=== PATIENT | female | born 1985 ===

== ENCOUNTER 2023-10-02 15:29 | Inpatient (IN) ==
[2023-10-02] MEDS ORDERED: LIDOCAINE 1% LOCAL 20 ML VIAL INFIL PRN (20:07)
[2023-10-02] MEDS ORDERED: OXYTOCIN 30 UNITS/NSS 30 UNITS/500 ML BAG IV PRN (20:07)
[2023-10-02 20:33] LABS: Hematocrit (blood only) 35.3 % (37.0-47.0); Hemoglobin 11.4 g/dl (12.0-16.0); Mean Corpuscular Hemoglobin 25.6 pg (25.0-34.0); Mean Corpuscular Hgb Conc 32.3 g/dL (32.0-36.0); Mean Corpuscular Volume 79.3 fL (80.0-100.0); Mean Platelet Volume 12.6 fL (9.4-12.4); Platelet Count 163 K/uL (130-400); RDW Coefficient of Variation 15.9 % (11.5-14.5); RDW Standard Deviation 45.3 fL (36.4-46.3); Red Blood Count 4.45 M/uL (4.20-5.40); White Blood Count 7.19 K/ul (4.8-10.8)
[2023-10-02 20:41] LABS: Total Protein Urine Random 37.5 mg/dl (0-11.9)
[2023-10-02 20:47] LABS: Creatinine Urine Random 62.3 mg/dl; Protein Creatinine Ratio Urine 0.6 (0-0.2)
[2023-10-02 20:49] LABS: Albumin Globulin Ratio 1.1 (0.9-2); Albumin Level 3.5 gm/dl (3.4-5.0); Bilirubin,Total 0.2 mg/dl (0.2-1.0); Calcium 8.8 mg/dl (8.6-10.3); Creatinine Clr Calc Pharmacy 114.1 ml/min; Est GFR (African American) 128.9 ml/min; Est GFR (Non-African American) 111.2 ml/min; Globulin 3.2 gm/dl (2.5-4.0); Potassium 3.9 mmol/L (3.5-5.1); Total Protein 6.7 gm/dl (6.0-8.3)
[2023-10-02] MEDS: DINOPROSTONE 10 MG INSERT PV ONE (20:55)
--- NOTE | 2023-10-02 21:19 | History & Physical Report ---
Date of Service October 02, 2023 Assessment & Plan (1) Post-term , 40-42 weeks of gestation: Plan: 38-year-old G1, P0 at 41 weeks of gestation presenting today for induction of labor for postdates, Vital signs stable afebrile, No medical problems, GBS negative, Incidental proteinuria, normal blood pressures, normal labs, asymptomatic, Cervix unfavorable, Plan to admit, monitor, cervix is placed in posterior fornix for cervical ripening, discussed what to expect All questions were answered. (2) Advanced maternal age, primigravida in third trimester, antepartum: (3) Anemia affecting : (4) Proteinuria affecting in third trimester: Admission and Anticipated Discharge Date Admission Date: October 02, 2023 History of Present Illness Chief Complaint: Induction of labor for postdates Primary Care Provider: NO PCP Patient is a 38-year-old G1, P0 at 41 weeks of gestation who is presenting today for scheduled induction of labor for postdates. She has no complaints. She denies contractions, leakage of fluid, vaginal bleeding. She reports good movements. Her has been complicated by, 1. Late care at 20 weeks, 2. Advanced maternal age, no testing was done. 3. Anemia GBS is negative Allergies Allergy/AdvReac Type Severity Reaction Status Date / Time No Known Allergies Allergy Unverified 10/02/23 19:33 Home Medications Medication Instructions Recorded Confirmed Type ferrous sulfate 325 mg (65 mg 325 mg PO DAILY #60 tabs 06/17/23 10/02/23 Rx iron) tablet vits no.130-ferrous fum 1 tab PO DAILY #60 tabs 06/17/23 10/02/23 Rx 27 mg iron-folic acid 800 mcg tablet ( Vitamin) Patient History Medical History No known health problems Surgical History History of surgery on arm right arm Family History Other No known health problems Social History Smoking Status: Never smoker Hx Alcohol Use: No Hx Substance Use: No Preferred Language: Surinamese Communication Ability Comment: limited Communication Tools: IPad Visual Impairment: No Limitations 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 Beliefs That Will Affect Care: None marital status: Current Living Situation: Spouse and Family Current Living Situation Comment: lives with hubsand, aunt and uncle current occupational status: unemployed Feels Safe at Home: Yes Safety Concerns: Feels Safe At This Time 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 No history of STDs Review of Systems as per Subjective / HPI Physical Exam Constitutional: WD/WN, vitals as above well developed, well nourished and comfortable Gastrointestinal (Abdomen): normal bowel sounds, soft, nontender, no hepatosplenomegaly (Gravid [place] 7 to 8 pounds) Genitourinary: normal external appearance OB Exam Abdomen: + vertex (Confirmed by bedside ultrasound) Manual OB Exam: + cervical dilation (0), + cervical effacement 20% and + station high (-3 posterior) OB Exam Monitor Tracing: + external uterine monitor used and + category I Bedside ultrasound, vertex presentation, placenta anterior, PADDY 4.5 cm, EFW at 3500 g. Results & Data Vital Signs (Past 12 Hours) Vital Signs Temp Pulse Resp BP O2 Del Method 10/02/23 19:56 90 131/87 10/02/23 19:26 36.9 C 18 Room Air 10/02/23 19:25 85 137/88 Laboratory Results Lab Results 10/02/23 10/02/23 Range/Units 20:00 20:15 WBC 7.19 (4.8-10.8) K/ul RBC 4.45 (4.20-5.40) M/uL Hgb 11.4 L (12.0-16.0) g/dl Hct 35.3 L (37.0-47.0) % MCV 79.3 L (80.0-100.0) fL MCH 25.6 (25.0-34.0) pg MCHC 32.3 (32.0-36.0) g/dL RDW Std Deviation 45.3 (36.4-46.3) fL RDW Coeff of Caroline 15.9 H (11.5-14.5) % Plt Count 163 (130-400) K/uL MPV 12.6 H (9.4-12.4) fL Sodium 135 L (136-145) mmol/L Potassium 3.9 (3.5-5.1) mmol/L Chloride 105 (98-107) mmol/L Carbon Dioxide 22 (21-32) mmol/L Anion Gap 8 (3-11) BUN 9 (6-23) mg/dl Creatinine 0.69 (0.6-1.2) mg/dl Est Cr Clr Drug Dosing 114.1 ml/min Est GFR ( Amer) 128.9 ml/min Est GFR (Non-Af Amer) 111.2 ml/min BUN/Creatinine Ratio 13.0 (10-20) Glucose 92 (70-99(Fasting)) mg/dl Calcium 8.8 (8.6-10.3) mg/dl Total Bilirubin 0.2 (0.2-1.0) mg/dl AST 27 (13-39) U/L ALT 27 (7-52) U/L Alkaline Phosphatase 129 H (34-104) U/L Total Protein 6.7 (6.0-8.3) gm/dl Albumin 3.5 (3.4-5.0) gm/dl Globulin 3.2 (2.5-4.0) gm/dl Albumin/Globulin Ratio 1.1 (0.9-2) Ur Random Creatinine 62.3 mg/dl U Random Total Protein 37.5 H (0-11.9) mg/dl Protein/Creatinin Ratio 0.6 H (0-0.2)
[2023-10-03] MEDS: LACTATED RINGER'S 1,000 ML IV PRN (04:55)
[2023-10-03] MEDS: BUTORPHANOL TARTRATE 2 MG/ML VIAL IV PRN (04:56)
[2023-10-03] MEDS: BUTORPHANOL TARTRATE 2 MG/ML VIAL ONE (05:14)
--- NOTE | 2023-10-03 10:09 | Labor Progress Brief Note ---
Date of Service October 03, 2023 Assessment & Plan Admission and Anticipated Discharge Date Admission Date: October 02, 2023 Physical Exam Genitourinary: Manual OB Exam: + cervical dilation fingertip, + cervical effacement 50% and + station high OB Exam Monitor Tracing: + external FHT monitor used, + external uterine monitor used, + category I and + normal FHT variability I attempted to place Lima balloon into cervix but patient was not tolerating the exam and moving so unable to place due to pain Results & Data Vital Signs (Past 12 Hours) Vital Signs Temp Pulse Resp BP 10/03/23 09:00 87 129/85 10/03/23 07:07 79 137/83 10/03/23 07:06 20 10/03/23 07:06 36.7 C 20 10/03/23 02:59 36.7 C 97 H 20 129/76 10/02/23 23:02 75 119/70 10/02/23 23:01 18 10/02/23 23:01 36.8 C 18
[2023-10-03] MEDS: miSOPROStoL 50 MCG TAB PO STA ×2 (13:35→17:35)
[2023-10-03] MEDS: miSOPROStoL 50 MCG TAB ONE (21:50)
[2023-10-04] MEDS: miSOPROStoL 50 MCG TAB PO SCH (02:37)
--- NOTE | 2023-10-04 07:48 | Labor Progress Brief Note ---
Date of Service October 04, 2023 Assessment & Plan Admission and Anticipated Discharge Date Admission Date: October 02, 2023 Physical Exam Genitourinary: Manual OB Exam: + cervical dilation fingertip and 1 cm, + cervical effacement 50% and + station high OB Exam Monitor Tracing: + external FHT monitor used, + external uterine monitor used, + category I and + normal FHT variability plan to use another Cervidil for ripening cervix Results & Data Vital Signs (Past 12 Hours) Vital Signs Temp Pulse Resp BP 10/04/23 07:25 36.8 C 83 18 132/90 10/04/23 02:33 88 135/83 10/04/23 00:30 18 10/04/23 00:30 18 10/03/23 21:52 93 H 140/93 10/03/23 20:00 18 10/03/23 20:00 36.8 C 18 10/03/23 19:50 92 H 132/85
[2023-10-04] MEDS: miSOPROStoL 50 MCG TAB PO STA (09:26)
[2023-10-04] MEDS: DINOPROSTONE 10 MG INSERT PV STA (09:35)
--- NOTE | 2023-10-04 14:40 | Labor Progress Brief Note ---
Date of Service October 04, 2023 Assessment & Plan Admission and Anticipated Discharge Date Admission Date: October 02, 2023 Physical Exam Genitourinary: Manual OB Exam: + cervical dilation fingertip and 1 cm, + cervical effacement 50% and + station high OB Exam Monitor Tracing: + external FHT monitor used, + external uterine monitor used, + category I and + normal FHT variability Lima balloon placed into cervix with 30 ml sterile water placed in balloon Results & Data Vital Signs (Past 12 Hours) Vital Signs Temp Pulse Resp BP 10/04/23 14:09 95 H 143/91 H 10/04/23 07:25 36.8 C 83 18 132/90
[2023-10-04] MEDS ORDERED: ATROPINE SULFATE 0.1 MG/ML 10ML SYR IV PRN (16:00)
[2023-10-04] MEDS ORDERED: diphenhydrAMINE 50 MG/ML VIAL IV PRN (16:00)
[2023-10-04] MEDS ORDERED: SODIUM CHLORIDE 0.9% PF INJ 10 ML VIAL EPI PRN (16:00)
[2023-10-04] MEDS ORDERED: BUPIVACAINE 0.25% PF 30 ML VIAL EPI PRN (16:00)
[2023-10-04] MEDS ORDERED: fentaNYL citrate PF 100 MCG/2 ML VIAL EPI PRN (16:00)
[2023-10-04] MEDS ORDERED: NALOXONE HCL 1 MG in SODIUM CHLORIDE 0.9% 1,000 ML IV PRN (16:00)
[2023-10-04] MEDS ORDERED: LIDOCAINE 2% MPF LOCAL 5 ML VIAL EPI PRN (16:00)
[2023-10-04] MEDS ORDERED: ePHEDrine sulfate 50 MG/ML AMP IV PRN ×2 (16:00)
[2023-10-04] MEDS ORDERED: NALBUPHINE HCL 5 MG in SYRINGE 0 ML IV PRN (16:00)
[2023-10-04] MEDS ORDERED: NALOXONE HCL 0.4 MG/1 ML VIAL/CARP IV PRN (16:00)
[2023-10-04] MEDS ORDERED: ROPIVACAINE 0.5% PF 5 MG/ML 20 ML VIAL EPI PRN (16:00)
--- NOTE | 2023-10-04 16:02 | Anesthesiology Consultation ---
Date of Service October 04, 2023 Assessment & Plan Chart Review Chart Review: Acceptable Risk for Labor Epidural Consults Requested none ASA ASA2 Proposed Anesthesia Anesthesia Type: Labor Epidural History Height/Weight Height: 5 ft 4 in Weight: 79.832 kg Allergies Allergy/AdvReac Type Severity Reaction Status Date / Time No Known Allergies Allergy Unverified 10/02/23 19:33 Medications Home Medications Medication Instructions Recorded Confirmed Last Taken ferrous sulfate 325 mg (65 mg 325 mg PO DAILY #60 tabs 06/17/23 10/02/23 10/01/23 iron) tablet vits no.130-ferrous fum 1 tab PO DAILY #60 tabs 06/17/23 10/02/23 10/01/23 27 mg iron-folic acid 800 mcg tablet ( Vitamin) Active Medications Generic Name Dose Route Start Last Admin Trade Name Freq PRN Reason Stop Dose Admin Butorphanol Tartrate 1 mg 10/03/23 04:48 10/04/23 14:06 Butorphanol Tartrate 2 Mg/Ml Vial IV 11/02/23 04:47 1 mg Q3HWA PRN Administration Pain Lactated Ringer's 1,000 mls @ 125 mls/hr 10/02/23 20:07 10/04/23 15:57 Lr IV 10/04/23 20:06 999 mls/hr .Q8H PRN Administration L&D Protocol Protocol Misoprostol 50 mcg 10/03/23 23:00 10/04/23 07:51 Misoprostol 50 Mcg Tab PO 11/02/23 22:59 Not Given Q4R AME Past Medical History Medical History No known health problems Past Family History Family History Other No known health problems Past Surgical History Surgical History History of surgery on arm right arm Social History Smoking Status: Never smoker Hx Alcohol Use: No Hx Substance Use: No substance use type: does not use Physical Exam Vital Signs Last Vital Signs Temp 36.8 C 10/04/23 14:08 Pulse 101 H 10/04/23 15:59 Resp 20 10/04/23 14:08 BP 143/91 H 10/04/23 14:09 Pulse Ox 96 10/04/23 15:59 O2 Del Method Room Air 10/02/23 19:26 Testing Laboratory Results 10/02/23 20:15 10/02/23 20:15
[2023-10-04] MEDS: LIDOCAINE 2%/EPINEPHRINE 1:200,000 20 ML PF ONE (16:30)
[2023-10-04] MEDS: fentANYL 2 MCG/ML BUPIVacaine 0.125%-NSS 100ML BAG ONE (16:32)
[2023-10-04] MEDS: fentaNYL citrate PF 100 MCG/2 ML VIAL ONE (16:39)
[2023-10-04] MEDS: fentaNYL citrate PF 100 MCG/2 ML VIAL EPI STA (16:40)
[2023-10-04] MEDS: SODIUM CHLORIDE 0.9% PF INJ 10 ML VIAL ONE (16:40)
[2023-10-04] MEDS: BUPIVACAINE 0.25% PF 30 ML VIAL ONE (16:40)
[2023-10-04] MEDS: BUPIVACAINE 0.25% PF 30 ML VIAL EPI STA (16:40)
[2023-10-04] MEDS: LIDOCAINE 2%/EPINEPHRINE 1:200,000 20 ML PF EPI STA (16:41)
[2023-10-04] MEDS: SODIUM CHLORIDE 0.9% PF INJ 10 ML VIAL EPI STA (16:41)
[2023-10-04] MEDS: ePHEDrine sulfate 50 MG/ML AMP ONE (19:06)
[2023-10-04] MEDS: LACTATED RINGER'S 1,000 ML IV SCH (21:30)
[2023-10-05] MEDS: fentANYL 2 MCG/ML BUPIVacaine 0.125%-NSS 100ML BAG EPI PRN (01:07)
[2023-10-05] MEDS: OXYTOCIN 30 UNITS/NSS 30 UNITS/500 ML BAG IV PRN (02:46)
--- NOTE | 2023-10-05 07:50 | Labor Progress Brief Note ---
Date of Service October 05, 2023 Assessment & Plan Admission and Anticipated Discharge Date Admission Date: October 02, 2023 Physical Exam Genitourinary: Manual OB Exam: + cervical dilation 5 cm, + cervical effacement 90%, + station -2 and + amniotic fluid clear OB Exam Monitor Tracing: + external FHT monitor used, + external uterine monitor used, + category I and + normal FHT variability AROM with Amni-hook clear fluid Results & Data Vital Signs (Past 12 Hours) Vital Signs Temp Pulse Resp BP Pulse Ox 10/05/23 07:46 104 H 93 10/05/23 07:41 94 10/05/23 07:41 93 H 10/05/23 07:41 93 H 95 10/05/23 07:38 88 124/67 10/05/23 07:36 91 H 95 10/05/23 07:31 91 H 96 10/05/23 07:30 20 10/05/23 07:30 20 10/05/23 07:28 95 H 94 10/05/23 07:26 95 H 96 10/05/23 07:22 90 128/69 10/05/23 07:21 95 H 95 10/05/23 07:19 92 H 94 10/05/23 07:16 94 H 95 10/05/23 07:11 99 H 97 10/05/23 07:07 107 H 126/75 10/05/23 07:06 98 H 96 10/05/23 07:05 20 10/05/23 07:05 37.2 C 20 10/05/23 07:01 92 H 95 10/05/23 07:00 18 10/05/23 07:00 18 10/05/23 06:58 95 H 94 10/05/23 06:56 95 H 95 10/05/23 06:51 92 H 96 10/05/23 06:46 98 H 96 10/05/23 06:41 93 H 98 10/05/23 06:36 95 H 96 10/05/23 06:31 98 H 98 10/05/23 06:30 20 10/05/23 06:30 20 10/05/23 06:26 98 H 97 10/05/23 06:22 104 H 126/77 10/05/23 06:21 98 H 98 10/05/23 06:16 96 H 96 10/05/23 06:11 101 H 97 10/05/23 06:07 100 H 135/69 10/05/23 06:06 102 H 95 10/05/23 06:01 98 H 96 10/05/23 05:56 100 H 96 10/05/23 05:52 103 H 135/73 10/05/23 05:51 104 H 97 10/05/23 05:46 103 H 97 10/05/23 05:41 104 H 97 10/05/23 05:36 98 H 97 10/05/23 05:31 107 H 96 10/05/23 05:30 18 10/05/23 05:30 18 10/05/23 05:26 108 H 95 10/05/23 05:21 101 H 96 10/05/23 05:16 102 H 97 10/05/23 05:11 106 H 96 10/05/23 05:06 104 H 96 10/05/23 05:04 107 H 94 10/05/23 05:01 103 H 95 10/05/23 05:00 18 10/05/23 05:00 18 10/05/23 04:56 102 H 96 10/05/23 04:53 108 H 135/75 10/05/23 04:51 102 H 94 10/05/23 04:46 102 H 96 10/05/23 04:45 103 H 94 10/05/23 04:41 105 H 96 10/05/23 04:40 110 H 94 10/05/23 04:37 101 H 126/67 10/05/23 04:36 100 H 96 10/05/23 04:31 102 H 96 10/05/23 04:30 18 10/05/23 04:30 18 10/05/23 04:26 99 H 96 10/05/23 04:22 97 H 126/65 10/05/23 04:21 98 H 96 10/05/23 04:16 107 H 97 10/05/23 04:11 100 H 97 10/05/23 04:07 100 H 119/64 10/05/23 04:06 99 H 94 10/05/23 04:01 99 H 94 10/05/23 04:00 18 10/05/23 04:00 18 10/05/23 03:56 104 H 96 10/05/23 03:52 104 H 116/64 03/18/24 03:51 110 H 96 18/24 03:46 105 H 96 18/24 03:41 102 H 95 0318/24 03:37 98 H 109/56 L 1824 03:36 98 H 95 18/24 03:35 102 H 94 18/24 03:31 101 H 95 18/24 03:29 100 H 94 18/24 03:26 99 H 95 18/24 03:23 96 H 113/55 L 1824 03:21 99 H 97 18/24 03:20 98 H 94 18/24 03:16 97 H 96 18/24 03:11 95 H 97 18/24 03:07 95 H 115/61 18/24 03:06 98 H 96 18/24 03:01 97 H 97 1824 02:56 96 H 96 18/24 02:52 96 H 114/61 18/24 02:51 95 H 96 18/24 02:46 97 H 96 18/24 02:41 96 H 98 18/24 02:37 96 H 113/60 18/24 02:36 93 H 97 18/24 02:31 97 H 97 18/24 02:26 98 H 98 18/24 02:22 93 H 118/64 18/24 02:21 94 H 97 18/24 02:16 91 H 97 18/24 02:11 93 H 97 18/24 02:07 102 H 129/76 18/24 02:06 101 H 99 18/24 02:01 97 H 98 18/24 01:56 107 H 99 18/24 01:52 105 H 136/86 18/24 01:51 104 H 97 18/24 01:46 103 H 98 18/24 01:41 102 H 97 18/24 01:39 104 H 135/77 18/24 01:36 97 H 97 18/24 01:31 97 H 97 18/24 01:30 20 18/24 01:30 20 18/24 01:26 96 H 98 03/18/24 01:22 94 H 135/78 10/05/23 01:21 98 H 98 10/05/23 01:16 96 H 98 10/05/23 01:11 99 H 98 10/05/23 01:08 100 H 136/78 10/05/23 01:06 99 H 98 10/05/23 01:01 98 H 98 10/05/23 01:00 20 10/05/23 01:00 20 10/05/23 00:56 97 H 98 10/05/23 00:52 102 H 135/69 10/05/23 00:51 98 H 97 10/05/23 00:46 104 H 97 10/05/23 00:41 96 H 99 10/05/23 00:37 100 H 137/70 10/05/23 00:36 106 H 99 10/05/23 00:31 104 H 99 10/05/23 00:30 18 10/05/23 00:30 18 10/05/23 00:26 104 H 98 10/05/23 00:23 100 H 132/74 10/05/23 00:21 95 H 97 10/05/23 00:16 94 H 97 10/05/23 00:11 96 H 98 10/05/23 00:08 100 H 131/74 10/05/23 00:06 93 H 96 10/05/23 00:01 95 H 97 10/05/23 00:00 18 10/05/23 00:00 37.0 C 18 10/04/23 23:56 94 H 98 10/04/23 23:52 90 130/70 10/04/23 23:51 92 H 97 10/04/23 23:46 91 H 98 10/04/23 23:41 95 H 99 10/04/23 23:37 100 H 140/87 10/04/23 23:36 103 H 99 10/04/23 23:31 101 H 100 10/04/23 23:30 18 10/04/23 23:30 18 10/04/23 23:26 99 H 99 10/04/23 23:22 97 H 137/81 10/04/23 23:21 103 H 99 10/04/23 23:16 96 H 100 10/04/23 23:11 102 H 100 10/04/23 23:06 89 99 10/04/23 23:01 96 H 100 10/04/23 23:00 18 10/04/23 23:00 18 10/04/23 22:56 103 H 100 10/04/23 22:51 101 H 100 10/04/23 22:46 98 H 100 10/04/23 22:41 98 H 99 10/04/23 22:37 94 H 122/61 10/04/23 22:36 93 H 99 10/04/23 22:31 111 H 98 10/04/23 22:30 18 10/04/23 22:30 37.1 C 18 10/04/23 22:26 101 H 98 10/04/23 22:21 100 H 100 10/04/23 22:16 100 H 100 10/04/23 22:11 95 H 100 10/04/23 22:07 93 H 138/79 10/04/23 22:06 90 99 10/04/23 22:01 92 H 99 10/04/23 22:00 18 10/04/23 22:00 18 10/04/23 21:56 93 H 100 10/04/23 21:53 98 H 143/80 H 10/04/23 21:51 97 H 99 10/04/23 21:46 90 100 10/04/23 21:41 91 H 100 10/04/23 21:38 105 H 140/53 L 10/04/23 21:36 92 H 99 10/04/23 21:31 106 H 100 10/04/23 21:30 18 10/04/23 21:30 18 10/04/23 21:26 98 H 97 10/04/23 21:22 100 H 131/75 10/04/23 21:21 95 H 100 10/04/23 21:16 95 H 100 10/04/23 21:11 90 100 10/04/23 21:07 92 H 132/79 10/04/23 21:06 95 H 100 10/04/23 21:01 93 H 100 10/04/23 21:00 18 10/04/23 21:00 18 10/04/23 20:56 93 H 100 10/04/23 20:52 90 124/75 10/04/23 20:51 91 H 100 10/04/23 20:46 94 H 100 10/04/23 20:41 97 H 100 10/04/23 20:36 103 H 92 10/04/23 20:35 105 H 94 10/04/23 20:31 91 H 100 10/04/23 20:30 18 10/04/23 20:30 18 10/04/23 20:26 92 H 100 10/04/23 20:22 93 H 108/73 10/04/23 20:21 91 H 100 10/04/23 20:16 94 H 100 10/04/23 20:11 102 H 100 10/04/23 20:07 94 H 126/70 10/04/23 20:06 79 100 10/04/23 20:01 98 H 100 10/04/23 20:00 18 10/04/23 20:00 18 10/04/23 19:56 91 H 99 10/04/23 19:53 96 H 115/71 10/04/23 19:51 99 H 99
--- NOTE | 2023-10-05 11:13 | Obstetrical Progress Note ---
Date of Service October 05, 2023 Assessment & Plan Admission and Anticipated Discharge Date Admission Date: October 02, 2023 Subjective Patient is reevaluated. Had tachysytole and Oxytocin was decreased from 14 to 7, IVF bolus was given FHR categ I VE; 8/ 90%/0 Continue to monitor closely. Results & Data Vital Signs (Past 12 Hours) Vital Signs Temp Pulse Resp BP Pulse Ox 10/05/23 11:07 106 H 157/91 H 98 10/05/23 11:02 93 H 99 10/05/23 11:00 18 10/05/23 11:00 18 10/05/23 10:57 90 99 10/05/23 10:52 92 H 98 10/05/23 10:47 109 H 98 10/05/23 10:42 92 H 99 10/05/23 10:37 88 127/76 99 10/05/23 10:32 93 H 98 10/05/23 10:30 20 10/05/23 10:30 20 10/05/23 10:27 100 H 97 10/05/23 10:22 105 H 10/05/23 10:22 95 H 131/75 98 10/05/23 10:17 94 H 97 10/05/23 10:12 90 98 10/05/23 10:07 104 H 133/80 96 10/05/23 10:02 101 H 97 10/05/23 10:01 37.2 C 10/05/23 09:57 97 H 98 10/05/23 09:53 100 H 127/83 10/05/23 09:52 101 H 99 10/05/23 09:47 98 H 97 10/05/23 09:42 91 H 95 10/05/23 09:38 100 H 93 10/05/23 09:37 90 117/66 95 10/05/23 09:32 90 96 10/05/23 09:30 18 10/05/23 09:30 18 10/05/23 09:27 91 H 96 10/05/23 09:22 90 120/68 97 10/05/23 09:17 94 H 97 10/05/23 09:12 93 H 96 10/05/23 09:07 90 120/65 96 10/05/23 09:04 96 H 94 10/05/23 09:02 90 96 03/18/24 09:00 18 03/18/24 09:00 18 24 08:57 92 H 97 1824 08:52 91 H 122/68 97 1824 08:47 97 H 98 1824 08:42 95 H 98 1824 08:38 104 H 121/65 1824 08:37 105 H 98 1824 08:32 97 H 97 1824 08:30 20 1824 08:30 20 1824 08:26 97 H 95 1824 08:22 98 H 127/67 1824 08:21 93 1824 08:21 98 H 1824 08:21 98 H 96 1824 08:16 96 H 94 24 08:15 96 H 94 1824 08:11 100 H 95 24 08:09 99 H 93 24 08:07 96 H 130/71 10/05/23 08:06 99 H 95 10/05/23 08:01 104 H 95 24 08:00 36.9 C 102 H 18 94 1824 07:56 97 H 96 1824 07:53 98 H 137/65 1824 07:51 100 H 97 24 07:46 104 H 93 1824 07:41 94 1824 07:41 93 H 1824 07:41 93 H 95 1824 07:38 88 124/67 1824 07:36 91 H 95 1824 07:31 91 H 96 1824 07:30 20 1824 07:30 20 18/24 07:28 95 H 94 18/24 07:26 95 H 96 18/24 07:22 90 128/69 1824 07:21 95 H 95 18/24 07:19 92 H 94 1824 07:16 94 H 95 1824 07:11 99 H 97 1824 07:07 107 H 126/75 1824 07:06 98 H 96 1824 07:05 20 03/18/24 07:05 37.2 C 20 10/05/23 07:01 92 H 95 10/05/23 07:00 18 10/05/23 07:00 18 10/05/23 06:58 95 H 94 10/05/23 06:56 95 H 95 10/05/23 06:51 92 H 96 10/05/23 06:46 98 H 96 10/05/23 06:41 93 H 98 10/05/23 06:36 95 H 96 10/05/23 06:31 98 H 98 10/05/23 06:30 20 10/05/23 06:30 20 10/05/23 06:26 98 H 97 10/05/23 06:22 104 H 126/77 10/05/23 06:21 98 H 98 10/05/23 06:16 96 H 96 10/05/23 06:11 101 H 97 10/05/23 06:07 100 H 135/69 10/05/23 06:06 102 H 95 10/05/23 06:01 98 H 96 10/05/23 05:56 100 H 96 10/05/23 05:52 103 H 135/73 10/05/23 05:51 104 H 97 10/05/23 05:46 103 H 97 10/05/23 05:41 104 H 97 10/05/23 05:36 98 H 97 10/05/23 05:31 107 H 96 10/05/23 05:30 18 10/05/23 05:30 18 10/05/23 05:26 108 H 95 10/05/23 05:21 101 H 96 10/05/23 05:16 102 H 97 10/05/23 05:11 106 H 96 10/05/23 05:06 104 H 96 10/05/23 05:04 107 H 94 10/05/23 05:01 103 H 95 10/05/23 05:00 18 10/05/23 05:00 18 10/05/23 04:56 102 H 96 24 04:53 108 H 135/75 10/05/23 04:51 102 H 94 1824 04:46 102 H 96 24 04:45 103 H 94 24 04:41 105 H 96 10/05/23 04:40 110 H 94 03/18/24 04:37 101 H 126/67 24 04:36 100 H 96 1824 04:31 102 H 96 24 04:30 18 10/05/23 04:30 18 24 04:26 99 H 96 24 04:22 97 H 126/65 10/05/23 04:21 98 H 96 10/05/23 04:16 107 H 97 10/05/23 04:11 100 H 97 10/05/23 04:07 100 H 119/64 24 04:06 99 H 94 10/05/23 04:01 99 H 94 10/05/23 04:00 18 10/05/23 04:00 18 10/05/23 03:56 104 H 96 10/05/23 03:52 104 H 116/64 10/05/23 03:51 110 H 96 10/05/23 03:46 105 H 96 10/05/23 03:41 102 H 95 24 03:37 98 H 109/56 L 10/05/23 03:36 98 H 95 24 03:35 102 H 94 24 03:31 101 H 95 1824 03:29 100 H 94 24 03:26 99 H 95 24 03:23 96 H 113/55 L 10/05/23 03:21 99 H 97 10/05/23 03:20 98 H 94 24 03:16 97 H 96 10/05/23 03:11 95 H 97 24 03:07 95 H 115/61 1824 03:06 98 H 96 24 03:01 97 H 97 24 02:56 96 H 96 1824 02:52 96 H 114/61 1824 02:51 95 H 96 1824 02:46 97 H 96 1824 02:41 96 H 98 1824 02:37 96 H 113/60 24 02:36 93 H 97 1824 02:31 97 H 97 24 02:26 98 H 98 1824 02:22 93 H 118/64 18/24 02:21 94 H 97 18/24 02:16 91 H 97 /18/24 02:11 93 H 97 /18/24 02:07 102 H 129/76 /18/24 02:06 101 H 99 0318/24 02:01 97 H 98 18/24 01:56 107 H 99 18/24 01:52 105 H 136/86 18/24 01:51 104 H 97 18/24 01:46 103 H 98 18/24 01:41 102 H 97 18/24 01:39 104 H 135/77 18/24 01:36 97 H 97 18/24 01:31 97 H 97 /18/24 01:30 20 1824 01:30 20 18/24 01:26 96 H 98 18/24 01:22 94 H 135/78 18/24 01:21 98 H 98 18/24 01:16 96 H 98 18/24 01:11 99 H 98 1824 01:08 100 H 136/78 18/24 01:06 99 H 98 18/24 01:01 98 H 98 18/24 01:00 20 1824 01:00 20 1824 00:56 97 H 98 18/24 00:52 102 H 135/69 18/24 00:51 98 H 97 18/24 00:46 104 H 97 18/24 00:41 96 H 99 18/24 00:37 100 H 137/70 18/24 00:36 106 H 99 18/24 00:31 104 H 99 18/24 00:30 18 18/24 00:30 18 18/24 00:26 104 H 98 /18/24 00:23 100 H 132/74 03/18/24 00:21 95 H 97 0318/24 00:16 94 H 97 18/24 00:11 96 H 98 18/24 00:08 100 H 131/74 03/18/24 00:06 93 H 96 /18/24 00:01 95 H 97 /18/24 00:00 18 03/18/24 00:00 37.0 C 18 10/04/23 23:56 94 H 98 10/04/23 23:52 90 130/70 10/04/23 23:51 92 H 97 10/04/23 23:46 91 H 98 10/04/23 23:41 95 H 99 10/04/23 23:37 100 H 140/87 10/04/23 23:36 103 H 99 10/04/23 23:31 101 H 100 10/04/23 23:30 18 10/04/23 23:30 18 10/04/23 23:26 99 H 99 10/04/23 23:22 97 H 137/81 10/04/23 23:21 103 H 99 10/04/23 23:16 96 H 100
[2023-10-05] MEDS ORDERED: GENTAMICIN CONSULT ACTIVE PRN (13:38)
[2023-10-05] MEDS ORDERED: GENTAMICIN SULFATE 120 MG in DEXTROSE 5% 100 ML IV STA (13:38)
--- NOTE | 2023-10-05 13:42 | Obstetrical Progress Note ---
Date of Service October 05, 2023 Assessment & Plan Admission and Anticipated Discharge Date Admission Date: October 02, 2023 Subjective Patient is reevaluated. She has been resting, having chills on and off Temp 38 VE: 10/100%/ +1 to 2 FHR 170's, tachycardic , good variability, no decels Plan to start IV AB and pushing Discussed needing to deliver soon. Results & Data Vital Signs (Past 12 Hours) Vital Signs Temp Pulse Resp BP Pulse Ox 10/05/23 13:37 112 H 97 10/05/23 13:36 109 H 131/77 10/05/23 13:32 117 H 99 10/05/23 13:27 117 H 99 10/05/23 13:22 118 H 99 10/05/23 13:21 121 H 130/71 10/05/23 13:17 119 H 99 10/05/23 13:12 115 H 98 10/05/23 13:07 114 H 10/05/23 13:07 117 H 127/78 99 10/05/23 13:02 122 H 98 10/05/23 13:00 18 10/05/23 13:00 18 10/05/23 12:57 114 H 97 10/05/23 12:52 128 H 99 10/05/23 12:50 110 H 153/114 H 10/05/23 12:47 114 H 99 10/05/23 12:42 115 H 98 10/05/23 12:37 107 H 10/05/23 12:37 109 H 166/113 H 99 10/05/23 12:32 106 H 99 10/05/23 12:30 18 10/05/23 12:30 18 10/05/23 12:27 106 H 98 10/05/23 12:22 104 H 99 10/05/23 12:17 101 H 99 10/05/23 12:12 100 H 99 10/05/23 12:08 115 H 136/96 10/05/23 12:07 121 H 100 10/05/23 12:02 120 H 99 10/05/23 11:59 18 10/05/23 11:59 18 10/05/23 11:57 102 H 99 10/05/23 11:52 119 H 99 10/05/23 11:51 115 H 155/97 H 10/05/23 11:50 18 24 11:50 36.7 C 18 24 11:47 110 H 99 1824 11:45 109 H 94 24 11:42 99 H 99 24 11:37 100 H 98 24 11:36 96 H 152/90 H 10/05/23 11:32 92 H 97 24 11:30 18 24 11:30 18 24 11:27 94 H 98 24 11:22 108 H 98 24 11:21 100 H 145/94 H 10/05/23 11:17 95 H 98 10/05/23 11:12 97 H 98 10/05/23 11:07 106 H 157/91 H 98 10/05/23 11:02 93 H 99 10/05/23 11:00 18 10/05/23 11:00 18 10/05/23 10:57 90 99 10/05/23 10:52 92 H 98 10/05/23 10:47 109 H 98 24 10:42 92 H 99 10/05/23 10:37 88 127/76 99 1824 10:32 93 H 98 24 10:30 20 24 10:30 20 10/05/23 10:27 100 H 97 24 10:22 105 H 24 10:22 95 H 131/75 98 24 10:17 94 H 97 10/05/23 10:12 90 98 24 10:07 104 H 133/80 96 24 10:02 101 H 97 24 10:01 37.2 C 10/05/23 09:57 97 H 98 24 09:53 100 H 127/83 24 09:52 101 H 99 24 09:47 98 H 97 24 09:42 91 H 95 24 09:38 100 H 93 24 09:37 90 117/66 95 1824 09:32 90 96 24 09:30 18 24 09:30 18 24 09:27 91 H 96 18/24 09:22 90 120/68 97 18/24 09:17 94 H 97 18/24 09:12 93 H 96 18/24 09:07 90 120/65 96 18/24 09:04 96 H 94 1824 09:02 90 96 1824 09:00 18 1824 09:00 18 1824 08:57 92 H 97 1824 08:52 91 H 122/68 97 18/24 08:47 97 H 98 1824 08:42 95 H 98 18/24 08:38 104 H 121/65 18/24 08:37 105 H 98 1824 08:32 97 H 97 1824 08:30 20 1824 08:30 20 1824 08:26 97 H 95 1824 08:22 98 H 127/67 24 08:21 93 1824 08:21 98 H 1824 08:21 98 H 96 1824 08:16 96 H 94 1824 08:15 96 H 94 18/24 08:11 100 H 95 18/24 08:09 99 H 93 18/24 08:07 96 H 130/71 1824 08:06 99 H 95 1824 08:01 104 H 95 18/24 08:00 36.9 C 102 H 18 94 1824 07:56 97 H 96 1824 07:53 98 H 137/65 18/24 07:51 100 H 97 18/24 07:46 104 H 93 18/24 07:41 94 18/24 07:41 93 H 18/24 07:41 93 H 95 18/24 07:38 88 124/67 18/24 07:36 91 H 95 18/24 07:31 91 H 96 18/24 07:30 20 18/24 07:30 20 18/24 07:28 95 H 94 1824 07:26 95 H 96 18/24 07:22 90 128/69 03/18/24 07:21 95 H 95 10/05/23 07:19 92 H 94 10/05/23 07:16 94 H 95 10/05/23 07:11 99 H 97 10/05/23 07:07 107 H 126/75 10/05/23 07:06 98 H 96 10/05/23 07:05 20 10/05/23 07:05 37.2 C 20 10/05/23 07:01 92 H 95 10/05/23 07:00 18 10/05/23 07:00 18 10/05/23 06:58 95 H 94 10/05/23 06:56 95 H 95 10/05/23 06:51 92 H 96 10/05/23 06:46 98 H 96 10/05/23 06:41 93 H 98 10/05/23 06:36 95 H 96 10/05/23 06:31 98 H 98 10/05/23 06:30 20 10/05/23 06:30 20 10/05/23 06:26 98 H 97 10/05/23 06:22 104 H 126/77 10/05/23 06:21 98 H 98 10/05/23 06:16 96 H 96 10/05/23 06:11 101 H 97 10/05/23 06:07 100 H 135/69 10/05/23 06:06 102 H 95 10/05/23 06:01 98 H 96 10/05/23 05:56 100 H 96 10/05/23 05:52 103 H 135/73 10/05/23 05:51 104 H 97 10/05/23 05:46 103 H 97 10/05/23 05:41 104 H 97 10/05/23 05:36 98 H 97 10/05/23 05:31 107 H 96 10/05/23 05:30 18 10/05/23 05:30 18 10/05/23 05:26 108 H 95 10/05/23 05:21 101 H 96 10/05/23 05:16 102 H 97 10/05/23 05:11 106 H 96 10/05/23 05:06 104 H 96 10/05/23 05:04 107 H 94 10/05/23 05:01 103 H 95 10/05/23 05:00 18 10/05/23 05:00 18 10/05/23 04:56 102 H 96 10/05/23 04:53 108 H 135/75 10/05/23 04:51 102 H 94 10/05/23 04:46 102 H 96 10/05/23 04:45 103 H 94 10/05/23 04:41 105 H 96 10/05/23 04:40 110 H 94 10/05/23 04:37 101 H 126/67 10/05/23 04:36 100 H 96 10/05/23 04:31 102 H 96 10/05/23 04:30 18 10/05/23 04:30 18 10/05/23 04:26 99 H 96 10/05/23 04:22 97 H 126/65 10/05/23 04:21 98 H 96 10/05/23 04:16 107 H 97 10/05/23 04:11 100 H 97 10/05/23 04:07 100 H 119/64 10/05/23 04:06 99 H 94 10/05/23 04:01 99 H 94 10/05/23 04:00 18 10/05/23 04:00 18 10/05/23 03:56 104 H 96 10/05/23 03:52 104 H 116/64 10/05/23 03:51 110 H 96 10/05/23 03:46 105 H 96 10/05/23 03:41 102 H 95 10/05/23 03:37 98 H 109/56 L 10/05/23 03:36 98 H 95 10/05/23 03:35 102 H 94 10/05/23 03:31 101 H 95 10/05/23 03:29 100 H 94 10/05/23 03:26 99 H 95 10/05/23 03:23 96 H 113/55 L 10/05/23 03:21 99 H 97 24 03:20 98 H 94 10/05/23 03:16 97 H 96 10/05/23 03:11 95 H 97 10/05/23 03:07 95 H 115/61 24 03:06 98 H 96 10/05/23 03:01 97 H 97 10/05/23 02:56 96 H 96 10/05/23 02:52 96 H 114/61 1824 02:51 95 H 96 03/18/24 02:46 97 H 96 03/1824 02:41 96 H 98 1824 02:37 96 H 113/60 1824 02:36 93 H 97 1824 02:31 97 H 97 1824 02:26 98 H 98 1824 02:22 93 H 118/64 24 02:21 94 H 97 24 02:16 91 H 97 24 02:11 93 H 97 10/05/23 02:07 102 H 129/76 24 02:06 101 H 99 1824 02:01 97 H 98 1824 01:56 107 H 99 24 01:52 105 H 136/86 1824 01:51 104 H 97 1824 01:46 103 H 98 1824 01:41 102 H 97
[2023-10-05] MEDS ORDERED: GENTAMICIN SULFATE 400 MG in DEXTROSE 5% 100 ML IV SCH (14:00)
[2023-10-05] MEDS: ACETAMINOPHEN 500 MG TAB PO PRN (14:05)
[2023-10-05] MEDS: CLINDAMYCIN/D5W 900 MG/50 ML BAG IV SCH (14:13)
--- NOTE | 2023-10-05 14:49 | Obstetrical Progress Note ---
Date of Service October 05, 2023 Assessment & Plan Admission and Anticipated Discharge Date Admission Date: October 02, 2023 Subjective Patient has been trying to push Not effective We are using underwriter solicitation director line and explaining all details and demonstrating it FHR categ II, Tachycardic, no decels I discussed section to deliver baby sooner but she declined, she wants to push. Continue to monitor closely. Results & Data Vital Signs (Past 12 Hours) Vital Signs Temp Pulse Resp BP Pulse Ox 10/05/23 14:42 117 H 97 10/05/23 14:37 120 H 96 10/05/23 14:36 120 H 145/79 H 10/05/23 14:32 125 H 95 10/05/23 14:27 130 H 99 10/05/23 14:22 122 H 99 10/05/23 14:17 126 H 97 10/05/23 14:12 131 H 97 10/05/23 14:07 134 H 99 10/05/23 14:06 131 H 191/99 H 10/05/23 14:02 124 H 97 10/05/23 13:57 121 H 96 10/05/23 13:52 118 H 98 10/05/23 13:51 113 H 146/92 H 10/05/23 13:47 112 H 97 10/05/23 13:42 113 H 98 10/05/23 13:37 112 H 97 10/05/23 13:36 109 H 131/77 10/05/23 13:35 39.5 C H 10/05/23 13:32 117 H 99 10/05/23 13:27 117 H 99 10/05/23 13:22 118 H 99 10/05/23 13:21 121 H 130/71 10/05/23 13:17 119 H 99 10/05/23 13:12 115 H 98 10/05/23 13:07 114 H 10/05/23 13:07 117 H 127/78 99 10/05/23 13:02 122 H 98 10/05/23 13:00 18 10/05/23 13:00 18 10/05/23 12:57 114 H 97 10/05/23 12:52 128 H 99 10/05/23 12:50 110 H 153/114 H 10/05/23 12:47 114 H 99 10/05/23 12:42 115 H 98 03/18/24 12:37 107 H 031824 12:37 109 H 166/113 H 99 1824 12:32 106 H 99 24 12:30 18 24 12:30 18 24 12:27 106 H 98 24 12:22 104 H 99 24 12:17 101 H 99 24 12:12 100 H 99 24 12:08 115 H 136/96 10/05/23 12:07 121 H 100 24 12:02 120 H 99 10/05/23 11:59 18 24 11:59 18 24 11:57 102 H 99 24 11:52 119 H 99 10/05/23 11:51 115 H 155/97 H 10/05/23 11:50 18 24 11:50 36.7 C 18 10/05/23 11:47 110 H 99 24 11:45 109 H 94 24 11:42 99 H 99 24 11:37 100 H 98 24 11:36 96 H 152/90 H 24 11:32 92 H 97 24 11:30 18 24 11:30 18 24 11:27 94 H 98 1824 11:22 108 H 98 24 11:21 100 H 145/94 H 24 11:17 95 H 98 24 11:12 97 H 98 24 11:07 106 H 157/91 H 98 1824 11:02 93 H 99 1824 11:00 18 1824 11:00 18 1824 10:57 90 99 1824 10:52 92 H 98 1824 10:47 109 H 98 24 10:42 92 H 99 1824 10:37 88 127/76 99 1824 10:32 93 H 98 18/24 10:30 20 1824 10:30 20 1824 10:27 100 H 97 1824 10:22 105 H 18/24 10:22 95 H 131/75 98 03/18/24 10:17 94 H 97 18/24 10:12 90 98 1824 10:07 104 H 133/80 96 1824 10:02 101 H 97 1824 10:01 37.2 C 10/05/23 09:57 97 H 98 1824 09:53 100 H 127/83 1824 09:52 101 H 99 1824 09:47 98 H 97 1824 09:42 91 H 95 1824 09:38 100 H 93 18/24 09:37 90 117/66 95 1824 09:32 90 96 1824 09:30 18 24 09:30 18 1824 09:27 91 H 96 1824 09:22 90 120/68 97 1824 09:17 94 H 97 1824 09:12 93 H 96 1824 09:07 90 120/65 96 18/24 09:04 96 H 94 1824 09:02 90 96 18/24 09:00 18 24 09:00 18 24 08:57 92 H 97 1824 08:52 91 H 122/68 97 1824 08:47 97 H 98 1824 08:42 95 H 98 1824 08:38 104 H 121/65 1824 08:37 105 H 98 1824 08:32 97 H 97 18/24 08:30 20 18/24 08:30 20 18/24 08:26 97 H 95 18/24 08:22 98 H 127/67 18/24 08:21 93 18/24 08:21 98 H 18/24 08:21 98 H 96 18/24 08:16 96 H 94 18/24 08:15 96 H 94 18/24 08:11 100 H 95 18/24 08:09 99 H 93 18/24 08:07 96 H 130/71 18/24 08:06 99 H 95 03/18/24 08:01 104 H 95 10/05/23 08:00 36.9 C 102 H 18 94 10/05/23 07:56 97 H 96 10/05/23 07:53 98 H 137/65 10/05/23 07:51 100 H 97 10/05/23 07:46 104 H 93 10/05/23 07:41 94 10/05/23 07:41 93 H 10/05/23 07:41 93 H 95 10/05/23 07:38 88 124/67 10/05/23 07:36 91 H 95 10/05/23 07:31 91 H 96 10/05/23 07:30 20 10/05/23 07:30 20 10/05/23 07:28 95 H 94 10/05/23 07:26 95 H 96 10/05/23 07:22 90 128/69 10/05/23 07:21 95 H 95 10/05/23 07:19 92 H 94 10/05/23 07:16 94 H 95 10/05/23 07:11 99 H 97 10/05/23 07:07 107 H 126/75 10/05/23 07:06 98 H 96 10/05/23 07:05 20 10/05/23 07:05 37.2 C 20 10/05/23 07:01 92 H 95 10/05/23 07:00 18 10/05/23 07:00 18 10/05/23 06:58 95 H 94 10/05/23 06:56 95 H 95 10/05/23 06:51 92 H 96 10/05/23 06:46 98 H 96 10/05/23 06:41 93 H 98 10/05/23 06:36 95 H 96 10/05/23 06:31 98 H 98 10/05/23 06:30 20 10/05/23 06:30 20 10/05/23 06:26 98 H 97 10/05/23 06:22 104 H 126/77 10/05/23 06:21 98 H 98 10/05/23 06:16 96 H 96 10/05/23 06:11 101 H 97 10/05/23 06:07 100 H 135/69 10/05/23 06:06 102 H 95 10/05/23 06:01 98 H 96 10/05/23 05:56 100 H 96 10/05/23 05:52 103 H 135/73 10/05/23 05:51 104 H 97 10/05/23 05:46 103 H 97 10/05/23 05:41 104 H 97 10/05/23 05:36 98 H 97 10/05/23 05:31 107 H 96 10/05/23 05:30 18 10/05/23 05:30 18 10/05/23 05:26 108 H 95 10/05/23 05:21 101 H 96 10/05/23 05:16 102 H 97 10/05/23 05:11 106 H 96 10/05/23 05:06 104 H 96 10/05/23 05:04 107 H 94 10/05/23 05:01 103 H 95 10/05/23 05:00 18 10/05/23 05:00 18 10/05/23 04:56 102 H 96 10/05/23 04:53 108 H 135/75 10/05/23 04:51 102 H 94 10/05/23 04:46 102 H 96 10/05/23 04:45 103 H 94 10/05/23 04:41 105 H 96 10/05/23 04:40 110 H 94 10/05/23 04:37 101 H 126/67 10/05/23 04:36 100 H 96 10/05/23 04:31 102 H 96 10/05/23 04:30 18 10/05/23 04:30 18 10/05/23 04:26 99 H 96 10/05/23 04:22 97 H 126/65 10/05/23 04:21 98 H 96 10/05/23 04:16 107 H 97 10/05/23 04:11 100 H 97 10/05/23 04:07 100 H 119/64 24 04:06 99 H 94 10/05/23 04:01 99 H 94 10/05/23 04:00 18 10/05/23 04:00 18 10/05/23 03:56 104 H 96 10/05/23 03:52 104 H 116/64 24 03:51 110 H 96 10/05/23 03:46 105 H 96 10/05/23 03:41 102 H 95 10/05/23 03:37 98 H 109/56 L 03/1824 03:36 98 H 95 1824 03:35 102 H 94 1824 03:31 101 H 95 1824 03:29 100 H 94 1824 03:26 99 H 95 1824 03:23 96 H 113/55 L 24 03:21 99 H 97 1824 03:20 98 H 94 24 03:16 97 H 96 24 03:11 95 H 97 1824 03:07 95 H 115/61 18/24 03:06 98 H 96 1824 03:01 97 H 97 1824 02:56 96 H 96 1824 02:52 96 H 114/61 1824 02:51 95 H 96
[2023-10-05] MEDS: GENTAMICIN SULFATE 120 MG in DEXTROSE 5% 100 ML IV ONE (14:53)
--- NOTE | 2023-10-05 16:24 | Obstetrical Progress Note ---
Date of Service October 05, 2023 Assessment & Plan Admission and Anticipated Discharge Date Admission Date: October 02, 2023 Subjective FHR improved after IV AB and Tylenol, baseline 150-160's She was not feeling pressure or urge to push Epidural basal rate was decreased from 10 to 5 and she labored down for about 45 min Started to push again, head is at +2 station, small caput present, Continue to monitor closely Results & Data Vital Signs (Past 12 Hours) Vital Signs Temp Pulse Resp BP Pulse Ox 10/05/23 16:18 101 H 96 10/05/23 16:13 112 H 92 10/05/23 16:08 99 H 98 10/05/23 16:04 38.0 C H 10/05/23 16:03 106 H 96 10/05/23 15:58 111 H 98 10/05/23 15:53 106 H 96 10/05/23 15:48 109 H 97 10/05/23 15:45 106 H 93 10/05/23 15:43 108 H 95 10/05/23 15:38 110 H 97 10/05/23 15:37 116 H 91 10/05/23 15:32 114 H 97 10/05/23 15:27 120 H 97 10/05/23 15:22 117 H 95 10/05/23 15:19 115 H 93 10/05/23 15:17 117 H 95 10/05/23 15:13 120 H 91 10/05/23 15:12 109 H 96 10/05/23 15:07 116 H 97 10/05/23 15:05 112 H 153/75 H 10/05/23 15:02 114 H 97 10/05/23 15:00 16 10/05/23 14:59 18 10/05/23 14:59 18 10/05/23 14:57 110 H 94 10/05/23 14:55 18 10/05/23 14:55 38.0 C H 18 10/05/23 14:52 114 H 146/74 H 97 10/05/23 14:47 123 H 95 10/05/23 14:42 117 H 97 10/05/23 14:37 120 H 96 10/05/23 14:36 120 H 145/79 H 10/05/23 14:32 125 H 95 10/05/23 14:30 18 10/05/23 14:30 18 10/05/23 14:27 130 H 99 10/05/23 14:22 122 H 99 10/05/23 14:17 126 H 97 10/05/23 14:12 131 H 97 10/05/23 14:07 134 H 99 10/05/23 14:06 131 H 191/99 H 10/05/23 14:02 124 H 97 10/05/23 14:00 20 10/05/23 14:00 20 10/05/23 13:57 121 H 96 10/05/23 13:52 118 H 98 10/05/23 13:51 113 H 146/92 H 10/05/23 13:47 112 H 97 10/05/23 13:42 113 H 98 10/05/23 13:37 112 H 97 10/05/23 13:36 109 H 131/77 10/05/23 13:35 39.5 C H 10/05/23 13:32 117 H 99 10/05/23 13:27 117 H 99 10/05/23 13:22 118 H 99 10/05/23 13:21 121 H 130/71 10/05/23 13:17 119 H 99 10/05/23 13:12 115 H 98 10/05/23 13:07 114 H 10/05/23 13:07 117 H 127/78 99 10/05/23 13:02 122 H 98 10/05/23 13:00 18 10/05/23 13:00 18 10/05/23 12:57 114 H 97 10/05/23 12:52 128 H 99 10/05/23 12:50 110 H 153/114 H 10/05/23 12:47 114 H 99 10/05/23 12:42 115 H 98 10/05/23 12:37 107 H 10/05/23 12:37 109 H 166/113 H 99 10/05/23 12:32 106 H 99 10/05/23 12:30 18 10/05/23 12:30 18 10/05/23 12:27 106 H 98 10/05/23 12:22 104 H 99 10/05/23 12:17 101 H 99 10/05/23 12:12 100 H 99 10/05/23 12:08 115 H 136/96 10/05/23 12:07 121 H 100 03/18/24 12:02 120 H 99 24 11:59 18 24 11:59 18 24 11:57 102 H 99 10/05/23 11:52 119 H 99 10/05/23 11:51 115 H 155/97 H 24 11:50 18 24 11:50 36.7 C 18 10/05/23 11:47 110 H 99 24 11:45 109 H 94 10/05/23 11:42 99 H 99 24 11:37 100 H 98 10/05/23 11:36 96 H 152/90 H 10/05/23 11:32 92 H 97 10/05/23 11:30 18 10/05/23 11:30 18 10/05/23 11:27 94 H 98 10/05/23 11:22 108 H 98 10/05/23 11:21 100 H 145/94 H 10/05/23 11:17 95 H 98 10/05/23 11:12 97 H 98 10/05/23 11:07 106 H 157/91 H 98 10/05/23 11:02 93 H 99 10/05/23 11:00 18 10/05/23 11:00 18 10/05/23 10:57 90 99 10/05/23 10:52 92 H 98 10/05/23 10:47 109 H 98 10/05/23 10:42 92 H 99 10/05/23 10:37 88 127/76 99 10/05/23 10:32 93 H 98 10/05/23 10:30 20 24 10:30 20 24 10:27 100 H 97 24 10:22 105 H 24 10:22 95 H 131/75 98 1824 10:17 94 H 97 10/05/23 10:12 90 98 10/05/23 10:07 104 H 133/80 96 10/05/23 10:02 101 H 97 24 10:01 37.2 C 10/05/23 09:57 97 H 98 24 09:53 100 H 127/83 24 09:52 101 H 99 10/05/23 09:47 98 H 97 03/18/24 09:42 91 H 95 18/24 09:38 100 H 93 18/24 09:37 90 117/66 95 0318/24 09:32 90 96 18/24 09:30 18 18/24 09:30 18 18/24 09:27 91 H 96 18/24 09:22 90 120/68 97 18/24 09:17 94 H 97 18/24 09:12 93 H 96 1824 09:07 90 120/65 96 18/24 09:04 96 H 94 18/24 09:02 90 96 1824 09:00 18 24 09:00 18 24 08:57 92 H 97 1824 08:52 91 H 122/68 97 18/24 08:47 97 H 98 1824 08:42 95 H 98 18/24 08:38 104 H 121/65 18/24 08:37 105 H 98 1824 08:32 97 H 97 18/24 08:30 20 1824 08:30 20 18/24 08:26 97 H 95 18/24 08:22 98 H 127/67 18/24 08:21 93 18/24 08:21 98 H 18/24 08:21 98 H 96 18/24 08:16 96 H 94 18/24 08:15 96 H 94 18/24 08:11 100 H 95 18/24 08:09 99 H 93 18/24 08:07 96 H 130/71 18/24 08:06 99 H 95 18/24 08:01 104 H 95 18/24 08:00 36.9 C 102 H 18 94 18/24 07:56 97 H 96 18/24 07:53 98 H 137/65 0318/24 07:51 100 H 97 18/24 07:46 104 H 93 18/24 07:41 94 18/24 07:41 93 H 18/24 07:41 93 H 95 18/24 07:38 88 124/67 03/18/24 07:36 91 H 95 24 07:31 91 H 96 24 07:30 20 24 07:30 20 10/05/23 07:28 95 H 94 10/05/23 07:26 95 H 96 24 07:22 90 128/69 10/05/23 07:21 95 H 95 24 07:19 92 H 94 10/05/23 07:16 94 H 95 10/05/23 07:11 99 H 97 10/05/23 07:07 107 H 126/75 10/05/23 07:06 98 H 96 10/05/23 07:05 20 10/05/23 07:05 37.2 C 20 10/05/23 07:01 92 H 95 10/05/23 07:00 18 10/05/23 07:00 18 10/05/23 06:58 95 H 94 10/05/23 06:56 95 H 95 10/05/23 06:51 92 H 96 10/05/23 06:46 98 H 96 10/05/23 06:41 93 H 98 24 06:36 95 H 96 24 06:31 98 H 98 1824 06:30 20 10/05/23 06:30 20 10/05/23 06:26 98 H 97 10/05/23 06:22 104 H 126/77 10/05/23 06:21 98 H 98 10/05/23 06:16 96 H 96 10/05/23 06:11 101 H 97 24 06:07 100 H 135/69 10/05/23 06:06 102 H 95 24 06:01 98 H 96 10/05/23 05:56 100 H 96 24 05:52 103 H 135/73 24 05:51 104 H 97 24 05:46 103 H 97 24 05:41 104 H 97 24 05:36 98 H 97 24 05:31 107 H 96 24 05:30 18 24 05:30 18 24 05:26 108 H 95 24 05:21 101 H 96 10/05/23 05:16 102 H 97 10/05/23 05:11 106 H 96 10/05/23 05:06 104 H 96 10/05/23 05:04 107 H 94 10/05/23 05:01 103 H 95 10/05/23 05:00 18 10/05/23 05:00 18 10/05/23 04:56 102 H 96 10/05/23 04:53 108 H 135/75 10/05/23 04:51 102 H 94 10/05/23 04:46 102 H 96 10/05/23 04:45 103 H 94 10/05/23 04:41 105 H 96 10/05/23 04:40 110 H 94 10/05/23 04:37 101 H 126/67 10/05/23 04:36 100 H 96 10/05/23 04:31 102 H 96 10/05/23 04:30 18 10/05/23 04:30 18 10/05/23 04:26 99 H 96
--- NOTE | 2023-10-05 17:44 | Obstetrical Progress Note ---
Date of Service October 05, 2023 Assessment & Plan Admission and Anticipated Discharge Date Admission Date: October 02, 2023 Subjective Patient is refusing to push, she feels tired and exhausted. We connected through translation line and explained the situation, has been supportive and trying to xu eh erpush but she does not listen and does not make eye contact with us. FHR categ II, back to tachycardia and decreased variability Recommended C section to deliver baby imminently, she agreed. Patient understands C section is a major surgery, with risks including but not limited to bleeding , infection, injury to surrounding organs like bowels, bladder, ureters, adhesions, scarring, wound infection, blood cloths in legs/ lungs, longer recovery. All questions were answered. She signed an informed consent. Results & Data Vital Signs (Past 12 Hours) Vital Signs Temp Pulse Resp BP Pulse Ox 10/05/23 17:38 104 H 99 10/05/23 17:33 96 H 99 10/05/23 17:28 108 H 98 10/05/23 17:23 102 H 99 10/05/23 17:21 98 H 144/77 H 10/05/23 17:18 98 H 98 10/05/23 17:13 96 H 97 10/05/23 17:11 101 H 92 10/05/23 17:08 98 H 96 10/05/23 17:06 100 H 150/94 H 10/05/23 17:03 99 H 97 10/05/23 17:00 20 10/05/23 17:00 20 10/05/23 16:58 99 H 96 10/05/23 16:53 115 H 94 10/05/23 16:52 108 H 143/90 H 10/05/23 16:48 110 H 95 10/05/23 16:44 111 H 93 10/05/23 16:43 97 H 96 10/05/23 16:38 102 H 96 10/05/23 16:37 96 H 169/97 H 10/05/23 16:33 98 H 97 10/05/23 16:28 102 H 98 10/05/23 16:24 102 H 94 10/05/23 16:23 104 H 98 10/05/23 16:18 101 H 96 10/05/23 16:13 112 H 92 10/05/23 16:08 99 H 98 10/05/23 16:04 38.0 C H 10/05/23 16:03 106 H 96 10/05/23 15:58 111 H 98 10/05/23 15:53 106 H 96 10/05/23 15:48 109 H 97 10/05/23 15:45 106 H 93 10/05/23 15:43 108 H 95 10/05/23 15:38 110 H 97 10/05/23 15:37 116 H 91 10/05/23 15:32 114 H 97 10/05/23 15:27 120 H 97 10/05/23 15:22 117 H 95 10/05/23 15:19 115 H 93 10/05/23 15:17 117 H 95 10/05/23 15:13 120 H 91 10/05/23 15:12 109 H 96 10/05/23 15:07 116 H 97 10/05/23 15:05 112 H 153/75 H 10/05/23 15:02 114 H 97 10/05/23 15:00 16 10/05/23 14:59 18 10/05/23 14:59 18 10/05/23 14:57 110 H 94 10/05/23 14:55 18 10/05/23 14:55 38.0 C H 18 10/05/23 14:52 114 H 146/74 H 97 10/05/23 14:47 123 H 95 10/05/23 14:42 117 H 97 10/05/23 14:37 120 H 96 10/05/23 14:36 120 H 145/79 H 10/05/23 14:32 125 H 95 10/05/23 14:30 18 10/05/23 14:30 18 10/05/23 14:27 130 H 99 10/05/23 14:22 122 H 99 10/05/23 14:17 126 H 97 10/05/23 14:12 131 H 97 10/05/23 14:07 134 H 99 10/05/23 14:06 131 H 191/99 H 10/05/23 14:02 124 H 97 10/05/23 14:00 20 10/05/23 14:00 20 10/05/23 13:57 121 H 96 10/05/23 13:52 118 H 98 10/05/23 13:51 113 H 146/92 H 10/05/23 13:47 112 H 97 10/05/23 13:42 113 H 98 10/05/23 13:37 112 H 97 10/05/23 13:36 109 H 131/77 10/05/23 13:35 39.5 C H 10/05/23 13:32 117 H 99 10/05/23 13:27 117 H 99 10/05/23 13:22 118 H 99 10/05/23 13:21 121 H 130/71 10/05/23 13:17 119 H 99 10/05/23 13:12 115 H 98 10/05/23 13:07 114 H 10/05/23 13:07 117 H 127/78 99 10/05/23 13:02 122 H 98 10/05/23 13:00 18 10/05/23 13:00 18 10/05/23 12:57 114 H 97 10/05/23 12:52 128 H 99 10/05/23 12:50 110 H 153/114 H 10/05/23 12:47 114 H 99 10/05/23 12:42 115 H 98 10/05/23 12:37 107 H 10/05/23 12:37 109 H 166/113 H 99 10/05/23 12:32 106 H 99 10/05/23 12:30 18 10/05/23 12:30 18 10/05/23 12:27 106 H 98 10/05/23 12:22 104 H 99 10/05/23 12:17 101 H 99 10/05/23 12:12 100 H 99 10/05/23 12:08 115 H 136/96 10/05/23 12:07 121 H 100 10/05/23 12:02 120 H 99 10/05/23 11:59 18 10/05/23 11:59 18 10/05/23 11:57 102 H 99 10/05/23 11:52 119 H 99 10/05/23 11:51 115 H 155/97 H 10/05/23 11:50 18 10/05/23 11:50 36.7 C 18 10/05/23 11:47 110 H 99 10/05/23 11:45 109 H 94 10/05/23 11:42 99 H 99 10/05/23 11:37 100 H 98 10/05/23 11:36 96 H 152/90 H 03/18/24 11:32 92 H 97 1824 11:30 18 24 11:30 18 24 11:27 94 H 98 24 11:22 108 H 98 24 11:21 100 H 145/94 H 1824 11:17 95 H 98 24 11:12 97 H 98 24 11:07 106 H 157/91 H 98 24 11:02 93 H 99 24 11:00 18 24 11:00 18 24 10:57 90 99 24 10:52 92 H 98 24 10:47 109 H 98 10/05/23 10:42 92 H 99 24 10:37 88 127/76 99 24 10:32 93 H 98 24 10:30 20 24 10:30 20 10/05/23 10:27 100 H 97 24 10:22 105 H 24 10:22 95 H 131/75 98 24 10:17 94 H 97 24 10:12 90 98 24 10:07 104 H 133/80 96 24 10:02 101 H 97 24 10:01 37.2 C 10/05/23 09:57 97 H 98 24 09:53 100 H 127/83 24 09:52 101 H 99 24 09:47 98 H 97 24 09:42 91 H 95 24 09:38 100 H 93 24 09:37 90 117/66 95 1824 09:32 90 96 1824 09:30 18 24 09:30 18 24 09:27 91 H 96 1824 09:22 90 120/68 97 1824 09:17 94 H 97 1824 09:12 93 H 96 1824 09:07 90 120/65 96 24 09:04 96 H 94 24 09:02 90 96 24 09:00 18 24 09:00 18 24 08:57 92 H 97 18/24 08:52 91 H 122/68 97 1824 08:47 97 H 98 1824 08:42 95 H 98 1824 08:38 104 H 121/65 1824 08:37 105 H 98 1824 08:32 97 H 97 1824 08:30 20 1824 08:30 20 1824 08:26 97 H 95 1824 08:22 98 H 127/67 1824 08:21 93 1824 08:21 98 H 24 08:21 98 H 96 1824 08:16 96 H 94 1824 08:15 96 H 94 24 08:11 100 H 95 24 08:09 99 H 93 24 08:07 96 H 130/71 10/05/23 08:06 99 H 95 24 08:01 104 H 95 24 08:00 36.9 C 102 H 18 94 1824 07:56 97 H 96 24 07:53 98 H 137/65 1824 07:51 100 H 97 24 07:46 104 H 93 24 07:41 94 1824 07:41 93 H 1824 07:41 93 H 95 1824 07:38 88 124/67 1824 07:36 91 H 95 18/24 07:31 91 H 96 1824 07:30 20 1824 07:30 20 1824 07:28 95 H 94 18/24 07:26 95 H 96 18/24 07:22 90 128/69 18/24 07:21 95 H 95 18/24 07:19 92 H 94 1824 07:16 94 H 95 1824 07:11 99 H 97 1824 07:07 107 H 126/75 1824 07:06 98 H 96 03/18/24 07:05 20 03/18/24 07:05 37.2 C 20 10/05/23 07:01 92 H 95 10/05/23 07:00 18 10/05/23 07:00 18 10/05/23 06:58 95 H 94 10/05/23 06:56 95 H 95 10/05/23 06:51 92 H 96 10/05/23 06:46 98 H 96 10/05/23 06:41 93 H 98 10/05/23 06:36 95 H 96 10/05/23 06:31 98 H 98 10/05/23 06:30 20 10/05/23 06:30 20 10/05/23 06:26 98 H 97 10/05/23 06:22 104 H 126/77 10/05/23 06:21 98 H 98 10/05/23 06:16 96 H 96 10/05/23 06:11 101 H 97 10/05/23 06:07 100 H 135/69 10/05/23 06:06 102 H 95 10/05/23 06:01 98 H 96 10/05/23 05:56 100 H 96 10/05/23 05:52 103 H 135/73 10/05/23 05:51 104 H 97 10/05/23 05:46 103 H 97
[2023-10-05] MEDS: CITRIC ACID/SODIUM CITRATE 15 ML UDC ONE (17:57)
[2023-10-05] MEDS ORDERED: DEXAMETHASONE SOD INJ 4 MG/ML VIAL ONE (18:05)
[2023-10-05] MEDS ORDERED: KETOROLAC 30 MG/ML VIAL ONE (18:05)
[2023-10-05] MEDS ORDERED: LIDOCAINE 2%/EPINEPHRINE 1:200,000 20 ML PF ONE (18:05)
[2023-10-05] MEDS ORDERED: OXYTOCIN 10 UNITS/ML VIAL ONE ×2 (18:05→18:49)
[2023-10-05] MEDS ORDERED: ONDANSETRON INJ 2 MG/ML 2 ML VIAL ONE (18:05)
[2023-10-05] MEDS ORDERED: PHENYLEPHRINE 100MCG/ML 10ML SYR IV ONE (18:05)
[2023-10-05] MEDS ORDERED: MoRPHine SULFATE PF 1 MG/ML 10 ML AMP/VIAL ONE (18:05)
[2023-10-05] MEDS ORDERED: ePHEDrine sulfate 50 MG/ML AMP ONE (18:05)
--- NOTE | 2023-10-05 18:11 | Communication Note ---
Date of Service: October 05, 2023 C/S called for arrest of descent. Epidural working well. Consented patient for regional anesthesia with epidural use and back up plan of GA. ASA 2E.
[2023-10-05] MEDS: ceFAZolin 2000MG 2,000 MG/15 ML SYR IV SCH (18:14)
[2023-10-05] MEDS: AZITHROMYCIN 500 MG in DEXTROSE 5% 250 ML IV SCH (18:16)
[2023-10-05] MEDS ORDERED: ONDANSETRON INJ 2 MG/ML 2 ML VIAL IV PRN (18:51)
[2023-10-05] MEDS ORDERED: ePHEDrine sulfate 50 MG/ML AMP IV PRN (18:51)
[2023-10-05] MEDS ORDERED: NALOXONE HCL 1 MG in SODIUM CHLORIDE 0.9% 1,000 ML IV PRN (18:51)
[2023-10-05] MEDS ORDERED: NALOXONE HCL 0.4 MG/1 ML VIAL/CARP IV PRN (18:51)
[2023-10-05] MEDS ORDERED: NALOXONE HCL 0.08 MG in SYRINGE 1.8 ML IV PRN (18:51)
[2023-10-05] MEDS ORDERED: NALBUPHINE HCL 5 MG in SYRINGE 0 ML IV PRN (18:51)
[2023-10-05] MEDS ORDERED: MEPERIDINE HCL 25 MG/ML CARP/VIAL IV PRN (18:51)
[2023-10-05] MEDS ORDERED: LACTATED RINGER'S 500 ML IV PRN (18:51)
[2023-10-05] MEDS ORDERED: diphenhydrAMINE 50 MG/ML VIAL IV PRN (18:51)
[2023-10-05] MEDS ORDERED: DC INTRASPINAL MORPHINE SCH (19:00)
[2023-10-05] MEDS ORDERED: NO NARCOTICS OR SEDATIVES SCH (19:00)
[2023-10-05 19:06] LABS: Hematocrit (blood only) 35.5 % (37.0-47.0); Hemoglobin 11.6 g/dl (12.0-16.0); Mean Corpuscular Hemoglobin 25.6 pg (25.0-34.0); Mean Corpuscular Hgb Conc 32.7 g/dL (32.0-36.0); Mean Corpuscular Volume 78.4 fL (80.0-100.0); Mean Platelet Volume 11.9 fL (9.4-12.4); Platelet Count 146 K/uL (130-400); RDW Coefficient of Variation 15.8 % (11.5-14.5); RDW Standard Deviation 44.4 fL (36.4-46.3); Red Blood Count 4.53 M/uL (4.20-5.40); White Blood Count 14.99 K/ul (4.8-10.8)
[2023-10-05] MEDS ORDERED: HYDROCORTISONE ACETATE 25 MG SUPP PR PRN (19:19)
[2023-10-05] MEDS ORDERED: BENZOCAINE 20% SPRY 85 APPLN/85 GM CAN EXT PRN (19:19)
[2023-10-05 19:28] LABS: Base Excess Cord Arterial Bld -5.5 mEq/L (-9-1.8); Base Excess Cord Venous Blood -3.8 mEq/L (-7.7-1.9); CO2 Cord Arterial Blood 54 mmHg (39.1-73.5); Cord Venous Blood HCO3 24 mmol/L (18.4-26.8); Cord Venous Blood PCO2 57 mmHg (30.4-57.2); Cord Venous Blood PO2 < 20 mmHg (14.1-43.3); Cord Venous Blood pH 7.24 (7.20-7.44); HCO3 Cord Arterial Blood 23 mmol/L (19.7-28.5); O2 Saturation Cord Venous Bld < 60.0 % (<68); Oxygen Sat Cord Arterial Blood < 60.0 % (<60); PO2 Cord Arterial Blood < 20 mmHg (4.1-31.7); pH Cord Arterial Blood 7.23 (7.1-7.38)
--- NOTE | 2023-10-05 19:30 | Operative Report ---
Post Operative Report Pre & Post Diagnosis Operation Date: 10/05/23 17:50 Pre-Op Diagnosis: Arrest of decent in second stage of labor. Catagory 2 strip. Maternal exhaustion Post-Op Diagnosis: Arrest of decent in second stage of labor. Catagory 2 strip. Maternal exhaustion. Delivery of live female child at 1840. I identified the patient and participated in the time-out.: Yes Procedure Operation Date: 10/05/23 17:50 Actual Procedures p Section in LD, delivery of live female child at 1840 - Kenneth Ceja MD Surgeon Kenneth Morales MD Registration Scheduling Specialist Dr Lew Estimated Blood Loss 700 Findings Consistent with Post-Op Diagnosis Baby was a viable female delivered at 18:50, cephalic, OP ( Occiput posterior) presentation, Apgars 8/9, Weight 3350 gr. Maternal findings: Normal uterus fallopian tubes and ovaries Specimens Placenta Drains Lima catheter: 300 ml urine Anesthesia Type Labor Epidural Complications none Disposition Accompanied Patient To Recovery: Yes Indications Patient is a 38-year-old G1, P0 at 41 weeks of gestation who was admitted on October 01 for induction of labor for postdates, she received cervical ripening with Cervidil, oral Cytotec followed by, Lima bulb and oxytocin per protocol. She was AROM'ed this morning at 5 cm and then progressed to fully dilatation. She pushed for over 2 hours and were ineffective. She was unable to continue with pushing efforts because of exhaustion and tachycardia with maternal fever noted. Decision was made to proceed with Delivery. Description of Procedure Patient was taken to operating room where epidural anesthesia was reloaded. She was placed in dorsal supine position with a leftward tilt. She was prepared and draped in usual sterile fashion. A financial skin incision was made and carried through to the underlying layer of fascia with the Bovie. Fascia was incised in the midline and incision was extended laterally with the help of Wheat scissors. Then the upper aspect of the fascial incision was grasped with 2 Kris clamps elevated the underlying rectus muscles were dissected off sharply with Wheat scissors. Same thing was done on the lower incision. Then the muscles were in the midline, peritoneum was identified grasped with 2 pickups and entered sharply with Metzenbaum scissors. Peritoneal incision was extended superior and inferiorly with good visualization of the bladder. The bladder blade was inserted. Vesicouterine peritoneum was identified, grasped with pickups and entered sharply with Metzenbaum scissors, bladder flap was created digitally and bladder blade was reinserted. Uterus was incised in transverse fashion, incision was extended laterally, mem branes were ruptured and clear fluid was obtained. Baby's head was low in pelvis and it was pushed back from by vagina by her nurse and it was brought up to the incision and delivered, followed by shoulders and then whole body without difficulty. Mouth and nose were suctioned there was dried on the field he was vigorously crying and moving. The cord was clamped timesx2 and cut and then the was handed off to the pediatric team with Dr Duran. Then the placenta was delivered manually as intact and complete. Uterus was externalized and cleared of all clots and debris's. Uterine incision was repaired with 0 Vicryl in a running locked fashion, second umbricating layer was placed with the same suture in running locked fashion. Excellent hemostasis achieved. Cul-de-sac and the pelvis was irrigated with warm normal saline and suctioned. Incision was checked to be hemostatic again. Uterus was returned to the abdomen, parietal peritoneum was reapproximated with 3-0 Vicryl in a running fashion and the muscles were reapproximated in the same suture in a running fashion. All of the fascia and rectus muscles were hemostatic. Rectus fascia was reapproximated with 3-0 Vicryl starting from both columns meeting in the midline. Subcuticular fat tissue was brought together with 2-0 Vicryl in a running fashion, skin was closed with 4-0 Monocryl in a subcuticular cuticular fashion. The mom and baby tolerated procedure well. Sponge needle instrument count was correct x3. No complications happened, I was present during whole procedure. My assistant casino shift manager was needed for retraction, hemostasis and aid during delivery of . I attest to the content of the Intraoperative Record and any orders documented therein. Any exceptions are noted below.
--- NOTE | 2023-10-05 19:40 | Anesthesiology Progress Note ---
Date of Service October 05, 2023 Anesthesia Post Procedure Vital Signs Vital Signs: Temp Pulse Resp BP Pulse Ox 10/05/23 19:39 104 H 92 10/05/23 19:35 95 H 136/67 95 10/05/23 19:33 102 H 94 10/05/23 19:30 99 H 97 10/05/23 19:29 100 H 138/61 10/05/23 19:25 102 H 96 10/05/23 18:13 120 H 98 10/05/23 18:08 110 H 98 10/05/23 18:03 106 H 97 10/05/23 18:00 18 10/05/23 18:00 18 10/05/23 17:58 103 H 98 10/05/23 17:53 112 H 99 10/05/23 17:52 100 H 152/89 H 10/05/23 17:48 112 H 99 10/05/23 17:43 100 H 99 10/05/23 17:38 104 H 99 10/05/23 17:33 96 H 99 10/05/23 17:28 108 H 98 10/05/23 17:23 102 H 99 10/05/23 17:21 98 H 144/77 H 10/05/23 17:18 98 H 98 10/05/23 17:13 96 H 97 10/05/23 17:11 101 H 92 10/05/23 17:08 98 H 96 10/05/23 17:06 100 H 150/94 H 10/05/23 17:03 99 H 97 10/05/23 17:00 20 10/05/23 17:00 20 10/05/23 16:58 99 H 96 10/05/23 16:53 115 H 94 10/05/23 16:52 108 H 143/90 H 10/05/23 16:48 110 H 95 24 16:44 111 H 93 10/05/23 16:43 97 H 96 24 16:38 102 H 96 10/05/23 16:37 96 H 169/97 H 24 16:33 98 H 97 10/05/23 16:28 102 H 98 24 16:24 102 H 94 10/05/23 16:23 104 H 98 24 16:18 101 H 96 10/05/23 16:13 112 H 92 10/05/23 16:08 99 H 98 10/05/23 16:04 38.0 C H 10/05/23 16:03 106 H 96 10/05/23 15:58 111 H 98 10/05/23 15:53 106 H 96 10/05/23 15:48 109 H 97 10/05/23 15:45 106 H 93 10/05/23 15:43 108 H 95 10/05/23 15:38 110 H 97 10/05/23 15:37 116 H 91 10/05/23 15:32 114 H 97 10/05/23 15:27 120 H 97 10/05/23 15:22 117 H 95 10/05/23 15:19 115 H 93 10/05/23 15:17 117 H 95 10/05/23 15:13 120 H 91 10/05/23 15:12 109 H 96 10/05/23 15:07 116 H 97 10/05/23 15:05 112 H 153/75 H 10/05/23 15:02 114 H 97 10/05/23 15:00 16 10/05/23 14:59 18 10/05/23 14:59 18 10/05/23 14:57 110 H 94 10/05/23 14:55 18 10/05/23 14:55 38.0 C H 18 10/05/23 14:52 114 H 146/74 H 97 10/05/23 14:47 123 H 95 10/05/23 14:42 117 H 97 10/05/23 14:37 120 H 96 10/05/23 14:36 120 H 145/79 H 10/05/23 14:32 125 H 95 10/05/23 14:30 18 10/05/23 14:30 18 10/05/23 14:27 130 H 99 10/05/23 14:22 122 H 99 10/05/23 14:17 126 H 97 10/05/23 14:12 131 H 97 10/05/23 14:07 134 H 99 10/05/23 14:06 131 H 191/99 H 10/05/23 14:02 124 H 97 10/05/23 14:00 20 10/05/23 14:00 20 10/05/23 13:57 121 H 96 10/05/23 13:52 118 H 98 10/05/23 13:51 113 H 146/92 H 10/05/23 13:47 112 H 97 10/05/23 13:42 113 H 98 10/05/23 13:37 112 H 97 10/05/23 13:36 109 H 131/77 10/05/23 13:35 39.5 C H 10/05/23 13:32 117 H 99 10/05/23 13:27 117 H 99 10/05/23 13:22 118 H 99 10/05/23 13:21 121 H 130/71 10/05/23 13:17 119 H 99 10/05/23 13:12 115 H 98 10/05/23 13:07 114 H 10/05/23 13:07 117 H 127/78 99 10/05/23 13:02 122 H 98 10/05/23 13:00 18 10/05/23 13:00 18 10/05/23 12:57 114 H 97 10/05/23 12:52 128 H 99 10/05/23 12:50 110 H 153/114 H 10/05/23 12:47 114 H 99 10/05/23 12:42 115 H 98 10/05/23 12:37 107 H 10/05/23 12:37 109 H 166/113 H 99 10/05/23 12:32 106 H 99 10/05/23 12:30 18 10/05/23 12:30 18 10/05/23 12:27 106 H 98 10/05/23 12:22 104 H 99 10/05/23 12:17 101 H 99 10/05/23 12:12 100 H 99 10/05/23 12:08 115 H 136/96 10/05/23 12:07 121 H 100 10/05/23 12:02 120 H 99 10/05/23 11:59 18 10/05/23 11:59 18 10/05/23 11:57 102 H 99 10/05/23 11:52 119 H 99 10/05/23 11:51 115 H 155/97 H 10/05/23 11:50 18 10/05/23 11:50 36.7 C 18 10/05/23 11:47 110 H 99 10/05/23 11:45 109 H 94 10/05/23 11:42 99 H 99 03/18/24 11:37 100 H 98 24 11:36 96 H 152/90 H 24 11:32 92 H 97 24 11:30 18 24 11:30 18 24 11:27 94 H 98 24 11:22 108 H 98 24 11:21 100 H 145/94 H 24 11:17 95 H 98 10/05/23 11:12 97 H 98 10/05/23 11:07 106 H 157/91 H 98 10/05/23 11:02 93 H 99 10/05/23 11:00 18 24 11:00 18 10/05/23 10:57 90 99 10/05/23 10:52 92 H 98 10/05/23 10:47 109 H 98 10/05/23 10:42 92 H 99 10/05/23 10:37 88 127/76 99 10/05/23 10:32 93 H 98 10/05/23 10:30 20 24 10:30 20 24 10:27 100 H 97 10/05/23 10:22 105 H 10/05/23 10:22 95 H 131/75 98 10/05/23 10:17 94 H 97 10/05/23 10:12 90 98 10/05/23 10:07 104 H 133/80 96 10/05/23 10:02 101 H 97 10/05/23 10:01 37.2 C 10/05/23 09:57 97 H 98 10/05/23 09:53 100 H 127/83 10/05/23 09:52 101 H 99 24 09:47 98 H 97 24 09:42 91 H 95 24 09:38 100 H 93 24 09:37 90 117/66 95 1824 09:32 90 96 24 09:30 18 24 09:30 18 24 09:27 91 H 96 24 09:22 90 120/68 97 1824 09:17 94 H 97 24 09:12 93 H 96 24 09:07 90 120/65 96 03/18/24 09:04 96 H 94 18/24 09:02 90 96 18/24 09:00 18 1824 09:00 18 1824 08:57 92 H 97 1824 08:52 91 H 122/68 97 0318/24 08:47 97 H 98 18/24 08:42 95 H 98 18/24 08:38 104 H 121/65 18/24 08:37 105 H 98 1824 08:32 97 H 97 1824 08:30 20 18/24 08:30 20 18/24 08:26 97 H 95 18/24 08:22 98 H 127/67 1824 08:21 93 1824 08:21 98 H 1824 08:21 98 H 96 1824 08:16 96 H 94 1824 08:15 96 H 94 1824 08:11 100 H 95 1824 08:09 99 H 93 1824 08:07 96 H 130/71 18/24 08:06 99 H 95 18/24 08:01 104 H 95 18/24 08:00 36.9 C 102 H 18 94 1824 07:56 97 H 96 18/24 07:53 98 H 137/65 18/24 07:51 100 H 97 18/24 07:46 104 H 93 18/24 07:41 94 18/24 07:41 93 H 1824 07:41 93 H 95 18/24 07:38 88 124/67 18/24 07:36 91 H 95 18/24 07:31 91 H 96 18/24 07:30 20 18/24 07:30 20 18/24 07:28 95 H 94 18/24 07:26 95 H 96 18/24 07:22 90 128/69 18/24 07:21 95 H 95 18/24 07:19 92 H 94 18/24 07:16 94 H 95 18/24 07:11 99 H 97 1824 07:07 107 H 126/75 03/18/24 07:06 98 H 96 10/05/23 07:05 20 10/05/23 07:05 37.2 C 20 10/05/23 07:01 92 H 95 10/05/23 07:00 18 10/05/23 07:00 18 10/05/23 06:58 95 H 94 10/05/23 06:56 95 H 95 10/05/23 06:51 92 H 96 10/05/23 06:46 98 H 96 10/05/23 06:41 93 H 98 10/05/23 06:36 95 H 96 10/05/23 06:31 98 H 98 10/05/23 06:30 20 10/05/23 06:30 20 10/05/23 06:26 98 H 97 10/05/23 06:22 104 H 126/77 10/05/23 06:21 98 H 98 10/05/23 06:16 96 H 96 10/05/23 06:11 101 H 97 10/05/23 06:07 100 H 135/69 10/05/23 06:06 102 H 95 10/05/23 06:01 98 H 96 10/05/23 05:56 100 H 96 10/05/23 05:52 103 H 135/73 10/05/23 05:51 104 H 97 10/05/23 05:46 103 H 97 10/05/23 05:41 104 H 97 10/05/23 05:36 98 H 97 10/05/23 05:31 107 H 96 10/05/23 05:30 18 10/05/23 05:30 18 10/05/23 05:26 108 H 95 10/05/23 05:21 101 H 96 10/05/23 05:16 102 H 97 10/05/23 05:11 106 H 96 10/05/23 05:06 104 H 96 10/05/23 05:04 107 H 94 10/05/23 05:01 103 H 95 10/05/23 05:00 18 10/05/23 05:00 18 10/05/23 04:56 102 H 96 10/05/23 04:53 108 H 135/75 10/05/23 04:51 102 H 94 24 04:46 102 H 96 10/05/23 04:45 103 H 94 24 04:41 105 H 96 24 04:40 110 H 94 24 04:37 101 H 126/67 24 04:36 100 H 96 10/05/23 04:31 102 H 96 24 04:30 18 10/05/23 04:30 18 24 04:26 99 H 96 24 04:22 97 H 126/65 10/05/23 04:21 98 H 96 10/05/23 04:16 107 H 97 10/05/23 04:11 100 H 97 10/05/23 04:07 100 H 119/64 24 04:06 99 H 94 10/05/23 04:01 99 H 94 10/05/23 04:00 18 10/05/23 04:00 18 10/05/23 03:56 104 H 96 10/05/23 03:52 104 H 116/64 10/05/23 03:51 110 H 96 10/05/23 03:46 105 H 96 24 03:41 102 H 95 24 03:37 98 H 109/56 L 24 03:36 98 H 95 24 03:35 102 H 94 24 03:31 101 H 95 24 03:29 100 H 94 24 03:26 99 H 95 24 03:23 96 H 113/55 L 24 03:21 99 H 97 24 03:20 98 H 94 24 03:16 97 H 96 24 03:11 95 H 97 24 03:07 95 H 115/61 1824 03:06 98 H 96 24 03:01 97 H 97 24 02:56 96 H 96 1824 02:52 96 H 114/61 1824 02:51 95 H 96 1824 02:46 97 H 96 24 02:41 96 H 98 1824 02:37 96 H 113/60 1824 02:36 93 H 97 24 02:31 97 H 97 03/18/24 02:26 98 H 98 03/18/24 02:22 93 H 118/64 18/24 02:21 94 H 97 18/24 02:16 91 H 97 18/24 02:11 93 H 97 18/24 02:07 102 H 129/76 /18/24 02:06 101 H 99 03/18/24 02:01 97 H 98 18/24 01:56 107 H 99 18/24 01:52 105 H 136/86 18/24 01:51 104 H 97 18/24 01:46 103 H 98 18/24 01:41 102 H 97 18/24 01:39 104 H 135/77 18/24 01:36 97 H 97 18/24 01:31 97 H 97 18/24 01:30 20 18/24 01:30 20 18/24 01:26 96 H 98 18/24 01:22 94 H 135/78 1824 01:21 98 H 98 18/24 01:16 96 H 98 18/24 01:11 99 H 98 18/24 01:08 100 H 136/78 18/24 01:06 99 H 98 18/24 01:01 98 H 98 18/24 01:00 20 1824 01:00 20 1824 00:56 97 H 98 /18/24 00:52 102 H 135/69 18/24 00:51 98 H 97 18/24 00:46 104 H 97 18/24 00:41 96 H 99 18/24 00:37 100 H 137/70 03/18/24 00:36 106 H 99 /18/24 00:31 104 H 99 /18/24 00:30 18 /18/24 00:30 18 /18/24 00:26 104 H 98 03/18/24 00:23 100 H 132/74 03/18/24 00:21 95 H 97 03/18/24 00:16 94 H 97 /18/24 00:11 96 H 98 /18/24 00:08 100 H 131/74 /18/24 00:06 93 H 96 10/05/23 00:01 95 H 97 10/05/23 00:00 18 10/05/23 00:00 37.0 C 18 10/04/23 23:56 94 H 98 10/04/23 23:52 90 130/70 10/04/23 23:51 92 H 97 10/04/23 23:46 91 H 98 10/04/23 23:41 95 H 99 10/04/23 23:37 100 H 140/87 10/04/23 23:36 103 H 99 10/04/23 23:31 101 H 100 10/04/23 23:30 18 10/04/23 23:30 18 10/04/23 23:26 99 H 99 10/04/23 23:22 97 H 137/81 10/04/23 23:21 103 H 99 10/04/23 23:16 96 H 100 10/04/23 23:11 102 H 100 10/04/23 23:06 89 99 10/04/23 23:01 96 H 100 10/04/23 23:00 18 10/04/23 23:00 18 10/04/23 22:56 103 H 100 10/04/23 22:51 101 H 100 10/04/23 22:46 98 H 100 10/04/23 22:41 98 H 99 10/04/23 22:37 94 H 122/61 10/04/23 22:36 93 H 99 10/04/23 22:31 111 H 98 10/04/23 22:30 18 10/04/23 22:30 37.1 C 18 10/04/23 22:26 101 H 98 10/04/23 22:21 100 H 100 10/04/23 22:16 100 H 100 10/04/23 22:11 95 H 100 10/04/23 22:07 93 H 138/79 10/04/23 22:06 90 99 10/04/23 22:01 92 H 99 10/04/23 22:00 18 10/04/23 22:00 18 10/04/23 21:56 93 H 100 10/04/23 21:53 98 H 143/80 H 10/04/23 21:51 97 H 99 10/04/23 21:46 90 100 10/04/23 21:41 91 H 100 10/04/23 21:38 105 H 140/53 L 10/04/23 21:36 92 H 99 10/04/23 21:31 106 H 100 10/04/23 21:30 18 10/04/23 21:30 18 10/04/23 21:26 98 H 97 10/04/23 21:22 100 H 131/75 10/04/23 21:21 95 H 100 10/04/23 21:16 95 H 100 10/04/23 21:11 90 100 10/04/23 21:07 92 H 132/79 10/04/23 21:06 95 H 100 10/04/23 21:01 93 H 100 10/04/23 21:00 18 10/04/23 21:00 18 10/04/23 20:56 93 H 100 10/04/23 20:52 90 124/75 10/04/23 20:51 91 H 100 10/04/23 20:46 94 H 100 10/04/23 20:41 97 H 100 10/04/23 20:36 103 H 92 10/04/23 20:35 105 H 94 10/04/23 20:31 91 H 100 10/04/23 20:30 18 10/04/23 20:30 18 10/04/23 20:26 92 H 100 10/04/23 20:22 93 H 108/73 10/04/23 20:21 91 H 100 10/04/23 20:16 94 H 100 10/04/23 20:11 102 H 100 10/04/23 20:07 94 H 126/70 10/04/23 20:06 79 100 10/04/23 20:01 98 H 100 10/04/23 20:00 18 10/04/23 20:00 18 10/04/23 19:56 91 H 99 10/04/23 19:53 96 H 115/71 10/04/23 19:51 99 H 99 10/04/23 19:46 98 H 100 10/04/23 19:41 92 H 99 Pain Intensity Bilateral Abdomen: Pain Intensity: 4 Transfer of Care Handoff Completed per policy Notes Mental Status: alert / awake / arousable Patient Amnestic to Procedure: Yes Nausea / Vomiting: adequately controlled Pain: adequately controlled Airway Patency, RR, SpO2: stable & adequate BP & HR: stable & adequate Hydration State: stable & adequate Neuraxial Anesthesia: was administered and sensory block is resolving Anesthetic Complications: no major complications apparent and Pt Satisfied with anesthetic care
[2023-10-05] MEDS: HYDROmorphone INJ 0.5 MG/0.5 ML SYR IV PRN (19:52)
[2023-10-05] MEDS: MoRPHine SULFATE PF 1 MG/ML 10 ML AMP/VIAL EPI ONE (21:15)
[2023-10-05] MEDS: CITRIC ACID/SODIUM CITRATE 15 ML UDC PO SCH (21:15)
[2023-10-05] MEDS: OXYTOCIN 20 UNITS/LR 1,002 ML IV SCH (21:25)
[2023-10-05] MEDS: DOCUSATE SODIUM 100 MG CAP PO SCH (21:35)
[2023-10-05] MEDS: METHYLERGONOVINE MALEATE 0.2 MG TAB PO SCH (21:40)
[2023-10-05] MEDS: SIMETHICONE 80 MG CHEW PO SCH (21:40)
[2023-10-05] MEDS: LABETALOL HCL 100 MG TAB PO SCH (22:56)
[2023-10-05 23:04] LABS: Hematocrit (blood only) 31.3 % (37.0-47.0); Hemoglobin 10.5 g/dl (12.0-16.0); Mean Corpuscular Hemoglobin 25.9 pg (25.0-34.0); Mean Corpuscular Hgb Conc 33.5 g/dL (32.0-36.0); Mean Corpuscular Volume 77.3 fL (80.0-100.0); Platelet Count 143 K/uL (130-400); RDW Coefficient of Variation 15.6 % (11.5-14.5); RDW Standard Deviation 43.5 fL (36.4-46.3); Red Blood Count 4.05 M/uL (4.20-5.40)
[2023-10-05 23:21] LABS: Albumin Globulin Ratio 1.1 (0.9-2); BUN Creatinine Ratio 10.5 (10-20); Bilirubin,Total 0.4 mg/dl (0.2-1.0); Calcium 8.6 mg/dl (8.6-10.3); Creatinine Clr Calc Pharmacy 82.9 ml/min; Est GFR (African American) 88.7 ml/min; Est GFR (Non-African American) 76.5 ml/min; Globulin 2.8 gm/dl (2.5-4.0); Potassium 4.2 mmol/L (3.5-5.1); Total Protein 5.8 gm/dl (6.0-8.3)
[2023-10-05 23:28] LABS: Basophils # (auto) 0.02 K/uL (0.00-0.20); Basophils % (auto) 0.1 %; Immature Granulocytes # (auto) 0.06 K/uL (0.01-0.20); Immature Granulocytes % (auto) 0.4 %; Lymphocytes # (auto) 0.55 K/uL (1.20-3.40); Lymphocytes % (auto) 3.6 %; Monocytes # (auto) 0.99 K/uL (0.11-0.59); Monocytes % (auto) 6.5 %; Neutrophils # (auto) 13.68 K/uL (1.40-6.50); Neutrophils % (auto) 89.4 %; RBC Morphology Unremarkable
[2023-10-05 23:43] LABS: INR 0.9 (0.9-1.1); Partial Thromboplastin Ratio 1.2; Partial Thromboplastin Time 33 Seconds (21-31); Prothrombin Time 9.9 Seconds (9.0-12.0)
[2023-10-06] MEDS: ceFAZolin 2000MG 2,000 MG/15 ML SYR IV SCH (03:04)
[2023-10-06] MEDS: KETOROLAC 30 MG/ML VIAL IV PRN (03:12)
[2023-10-06] MEDS: LACTATED RINGER'S 1,000 ML IV SCH (05:04)
[2023-10-06] MEDS: LABETALOL HCL 100 MG TAB PO ONE (05:08)
[2023-10-06 06:30] LABS: Hematocrit (blood only) 29.9 % (37.0-47.0); Hemoglobin 9.7 g/dl (12.0-16.0); Mean Corpuscular Hemoglobin 25.5 pg (25.0-34.0); Mean Corpuscular Hgb Conc 32.4 g/dL (32.0-36.0); Mean Corpuscular Volume 78.7 fL (80.0-100.0); Mean Platelet Volume 12.7 fL (9.4-12.4); Platelet Count 148 K/uL (130-400); RDW Coefficient of Variation 15.4 % (11.5-14.5); RDW Standard Deviation 44.1 fL (36.4-46.3); White Blood Count 18.13 K/ul (4.8-10.8)
[2023-10-06 06:43] LABS: Creatinine Clr Calc Pharmacy 88.5 ml/min; Est GFR (Non-African American) 82.8 ml/min
[2023-10-06 07:06] LABS: Basophils # (auto) 0.07 K/uL (0.00-0.20); Basophils % (auto) 0.4 %; Immature Granulocytes # (auto) 0.09 K/uL (0.01-0.20); Immature Granulocytes % (auto) 0.5 %; Lymphocytes # (auto) 0.71 K/uL (1.20-3.40); Lymphocytes % (auto) 3.9 %; Monocytes # (auto) 1.27 K/uL (0.11-0.59); Neutrophils # (auto) 15.99 K/uL (1.40-6.50); Neutrophils % (auto) 88.2 %; RBC Morphology Unremarkable
[2023-10-06] MEDS: SODIUM CHLORIDE 0.9% 1,000 ML IV SCH (09:03)
[2023-10-06] MEDS: MEASLES, MUMPS & RUBELLA VIRUS VACCINE (MMR) VIAL SQ ONE (09:04)
[2023-10-06] MEDS: DIPHTHER/TETAN/PERTUS Vaccine (Tdap, Adol/Adult) 0.5mL IM ONE (09:06)
[2023-10-06] MEDS: PRENATAL VITAMIN 1 TAB PO SCH (09:37)
[2023-10-06] MEDS: FERROUS SULFATE 325 MG TAB PO SCH (09:37)
--- NOTE | 2023-10-06 10:52 | Obstetrical Progress Note ---
Date of Service October 06, 2023 Subjective Ambulation: limited ambulation Voiding: jaramillo catheter in place Passing Gas:: No Diet Tolerance:: clear liquids Lochia:: Small Feeding Type:: bottle feeding Current Pain Level(1-10): 2 doing better Physical Exam Constitutional WD/WN, vitals as above Gastrointestinal (Abdomen) Inspection/Auscultation: abdomen normal to inspection incision c/d/i Musculoskeletal Extremities: extremities normal to inspection Skin no rashes, warm and dry Neurologic patellar DTR's 2+ bilat, sensation intact Psychiatric A+Ox3, euthymic affect Results & Data Vital Signs (Past 12 Hours) Vital Signs Temp Pulse Resp BP Pulse Ox O2 Del Method O2 Flow Rate 10/06/23 10:30 20 95 10/06/23 09:35 16 92 10/06/23 08:30 16 98 10/06/23 08:00 37.2 C 103 H 18 129/86 97 Room Air 10/06/23 07:50 Room Air 10/06/23 07:30 20 99 10/06/23 06:45 18 93 10/06/23 05:32 16 94 10/06/23 04:00 17 94 10/06/23 03:08 37.0 C 105 H 18 139/94 92 Room Air 10/06/23 03:00 16 93 10/06/23 02:11 16 95 10/06/23 01:00 16 96 10/05/23 23:45 14 98 10/05/23 23:36 97 Oxymask 2 10/05/23 23:35 85 L Room Air Laboratory Results Laboratory Results - last 48 hr 10/05/23 10/05/23 10/05/23 18:10 18:41 18:41 WBC 14.99 H RBC 4.53 Hgb 11.6 L Hct 35.5 L MCV 78.4 L MCH 25.6 MCHC 32.7 RDW Std Deviation 44.4 RDW Coeff of Caroline 15.8 H Plt Count 146 MPV 11.9 Immature Gran % (Auto) Neut % (Auto) Lymph % (Auto) Johnston % (Auto) Eos % (Auto) Baso % (Auto) Neut # (Auto) Lymph # (Auto) Johnston # (Auto) Eos # (Auto) Baso # (Auto) Immature Gran # (Auto) RBC Morphology PT INR APTT PTT Ratio Cord ABG pH 7.23 Cord ABG pCO2 54 Cord ABG pO2 < 20 Cord ABG HCO3 23 Cord ABG Base Excess -5.5 Cord ABG O2 Sat < 60.0 Cord VBG pH 7.24 Cord VBG pCO2 57 Cord VBG pO2 < 20 Cord VBG HCO3 24 Cord VBG Base Excess -3.8 Cord VBG O2 Sat < 60.0 Blood Gas Comments BERNABE BERNABE Sodium Potassium Chloride Carbon Dioxide Anion Gap BUN Creatinine Est Cr Clr Drug Dosing Est GFR ( Amer) Est GFR (Non-Af Amer) BUN/Creatinine Ratio Glucose Lactate Calcium Total Bilirubin AST ALT Alkaline Phosphatase Total Protein Albumin Globulin Albumin/Globulin Ratio Blood Type B Positive Antibody Screen NEGATIVE 10/05/23 10/06/23 22:52 05:53 WBC 15.30 H 18.13 H RBC 4.05 L 3.80 L Hgb 10.5 L 9.7 L Hct 31.3 L 29.9 L MCV 77.3 L 78.7 L MCH 25.9 25.5 MCHC 33.5 32.4 RDW Std Deviation 43.5 44.1 RDW Coeff of Caroline 15.6 H 15.4 H Plt Count 143 148 MPV 12.0 12.7 H Immature Gran % (Auto) 0.4 0.5 Neut % (Auto) 89.4 88.2 Lymph % (Auto) 3.6 3.9 Johnston % (Auto) 6.5 7.0 Eos % (Auto) 0.0 0.0 Baso % (Auto) 0.1 0.4 Neut # (Auto) 13.68 H 15.99 H Lymph # (Auto) 0.55 L 0.71 L Johnston # (Auto) 0.99 H 1.27 H Eos # (Auto) 0.00 0.00 Baso # (Auto) 0.02 0.07 Immature Gran # (Auto) 0.06 0.09 RBC Morphology Unremarkable Unremarkable PT 9.9 INR 0.9 APTT 33 H PTT Ratio 1.2 Cord ABG pH Cord ABG pCO2 Cord ABG pO2 Cord ABG HCO3 Cord ABG Base Excess Cord ABG O2 Sat Cord VBG pH Cord VBG pCO2 Cord VBG pO2 Cord VBG HCO3 Cord VBG Base Excess Cord VBG O2 Sat Blood Gas Comments Sodium 134 L Potassium 4.2 Chloride 103 Carbon Dioxide 21 Anion Gap 10 BUN 10 Creatinine 0.95 0.89 Est Cr Clr Drug Dosing 82.9 88.5 Est GFR ( Amer) 88.7 96.0 Est GFR (Non-Af Amer) 76.5 82.8 BUN/Creatinine Ratio 10.5 Glucose 108 H Lactate 1.7 Calcium 8.6 Total Bilirubin 0.4 AST 40 H ALT 29 Alkaline Phosphatase 105 H Total Protein 5.8 L Albumin 3.0 L Globulin 2.8 Albumin/Globulin Ratio 1.1 Blood Type Antibody Screen
[2023-10-06] MEDS: OXYTOCIN 20 UNITS in D5W AND LACTATED RINGERS 1,000 ML IV SCH (11:39)
[2023-10-06] MEDS ORDERED: Nursing to Pharmacy Communication SCH (11:45)
[2023-10-06] MEDS ORDERED: diphenhydrAMINE Capsule 25 MG CAP PO PRN (12:52)
[2023-10-06] MEDS ORDERED: ONDANSETRON INJ 2 MG/ML 2 ML VIAL IV PRN (12:52)
[2023-10-06] MEDS ORDERED: MEPERIDINE HCL 50 MG/ML CARP IV PRN (12:52)
[2023-10-06] MEDS ORDERED: diphenhydrAMINE 50 MG/ML VIAL IV PRN (12:52)
[2023-10-06] MEDS ORDERED: PROMETHAZINE HCL 25 MG in SODIUM CHLORIDE 0.9% 50 ML IV PRN (12:52)
[2023-10-06] MEDS: oxyCODONE/ACETAMINOPHEN 5mg/325mg TAB PO PRN (12:54)
[2023-10-06] MEDS: IBUPROFEN 600 MG TAB PO PRN (12:55)
[2023-10-06] MEDS: CLINDAMYCIN/D5W 900 MG/50 ML BAG IV SCH (14:15)
[2023-10-06] MEDS: AZITHROMYCIN 500 MG in DEXTROSE 5% 250 ML IV SCH (18:00)
[2023-10-06] MEDS: bisacodyL 5 MG TABEC PO SCH (19:36)
[2023-10-07 06:10] LABS: Hematocrit (blood only) 23.2 % (37.0-47.0); Hemoglobin 7.8 g/dl (12.0-16.0)
--- NOTE | 2023-10-07 09:39 | Obstetrical Progress Note ---
Date of Service October 07, 2023 Assessment & Plan Admission and Anticipated Discharge Date Admission Date: October 02, 2023 Subjective Patient is seen and examined. She feels well, no complaints. Pain is under control with oral meds. Ambulating without dizziness Voiding without difficulty Tolerating regular diet with out N&V Flatus + BM NEG Bleeding is minimal No fever/ chills/ CP/ SOB/ N&V/ Leg pain Bottle feeding without problems Vital Signs Temp Pulse Resp BP Pulse Ox O2 Del Method 10/06/23 23:10 36.6 C 95 H 16 108/76 96 Room Air 10/06/23 19:15 36.8 C 97 H 16 111/78 96 Room Air 10/06/23 12:30 36.8 C 89 16 98 Room Air 10/06/23 12:28 16 96 10/06/23 10:30 20 95 Intake and Output 10/06/23 10/07/23 10/07/23 22:59 06:59 14:59 Intake Total 2357 / 2407 Output Total 325 / 1025 Balance 2032 / 1382 Intake: IV 2357 / 2407 Azithromycin 500 mg In Dextrose 255 / 255 5% 250 ml @ 125 mls/hr IV Q24H AME Rx#:[id number] Clindamycin/D5w 900 mg In 50 ml 100 / 150 @ 100 mls/hr IV Q8H AME Rx#: [id number] Lactated Ringer's 1,000 ml @ 1000 / 1000 125 mls/hr IV .Q8H AME Rx#: [id number] Oxytocin 20 Units/Lr 1,002 ml @ 1002 / 1002 125 mls/hr IV .Q8H1M AME Rx#: [id number] Output: Urine 325 / 325 Lab Results 10/02/23 10/02/23 10/05/23 Range/Units 20:00 20:15 18:10 WBC 7.19 14.99 H (4.8-10.8) K/ul RBC 4.45 4.53 (4.20-5.40) M/uL Hgb 11.4 L 11.6 L (12.0-16.0) g/dl Hct 35.3 L 35.5 L (37.0-47.0) % MCV 79.3 L 78.4 L (80.0-100.0) fL MCH 25.6 25.6 (25.0-34.0) pg MCHC 32.3 32.7 (32.0-36.0) g/dL RDW Std Deviation 45.3 44.4 (36.4-46.3) fL RDW Coeff of Caroline 15.9 H 15.8 H (11.5-14.5) % Plt Count 163 146 (130-400) K/uL MPV 12.6 H 11.9 (9.4-12.4) fL Immature Gran % (Auto) % Neut % (Auto) % Lymph % (Auto) % Yell % (Auto) % Eos % (Auto) % Baso % (Auto) % Neut # (Auto) (1.40-6.50) K/uL Lymph # (Auto) (1.20-3.40) K/uL Yell # (Auto) (0.11-0.59) K/uL Eos # (Auto) (0.00-0.50) K/uL Baso # (Auto) (0.00-0.20) K/uL Immature Gran # (Auto) (0.01-0.20) K/uL RBC Morphology PT (9.0-12.0) Seconds INR (0.9-1.1) APTT (21-31) Seconds PTT Ratio Cord ABG pH (7.1-7.38) Cord ABG pCO2 (39.1-73.5) mmHg Cord ABG pO2 (4.1-31.7) mmHg Cord ABG HCO3 (19.7-28.5) mmol/L Cord ABG Base Excess (-9-1.8) mEq/L Cord ABG O2 Sat (<60) % Cord VBG pH (7.20-7.44) Cord VBG pCO2 (30.4-57.2) mmHg Cord VBG pO2 (14.1-43.3) mmHg Cord VBG HCO3 (18.4-26.8) mmol/L Cord VBG Base Excess (-7.7-1.9) mEq/L Cord VBG O2 Sat (<68) % Blood Gas Comments Sodium 135 L (136-145) mmol/L Potassium 3.9 (3.5-5.1) mmol/L Chloride 105 (98-107) mmol/L Carbon Dioxide 22 (21-32) mmol/L Anion Gap 8 (3-11) BUN 9 (6-23) mg/dl Creatinine 0.69 (0.6-1.2) mg/dl Est Cr Clr Drug Dosing 114.1 ml/min Est GFR ( Amer) 128.9 ml/min Est GFR (Non-Af Amer) 111.2 ml/min BUN/Creatinine Ratio 13.0 (10-20) Glucose 92 (70-99(Fasting)) mg/dl Lactate (0.4-2.0) mmol/L Calcium 8.8 (8.6-10.3) mg/dl Total Bilirubin 0.2 (0.2-1.0) mg/dl AST 27 (13-39) U/L ALT 27 (7-52) U/L Alkaline Phosphatase 129 H (34-104) U/L Total Protein 6.7 (6.0-8.3) gm/dl Albumin 3.5 (3.4-5.0) gm/dl Globulin 3.2 (2.5-4.0) gm/dl Albumin/Globulin Ratio 1.1 (0.9-2) Ur Random Creatinine 62.3 mg/dl U Random Total Protein 37.5 H (0-11.9) mg/dl Protein/Creatinin Ratio 0.6 H (0-0.2) Blood Type B Positive Antibody Screen NEGATIVE 10/05/23 10/05/23 10/05/23 Range/Units 18:41 18:41 22:52 WBC 15.30 H (4.8-10.8) K/ul RBC 4.05 L (4.20-5.40) M/uL Hgb 10.5 L (12.0-16.0) g/dl Hct 31.3 L (37.0-47.0) % MCV 77.3 L (80.0-100.0) fL MCH 25.9 (25.0-34.0) pg MCHC 33.5 (32.0-36.0) g/dL RDW Std Deviation 43.5 (36.4-46.3) fL RDW Coeff of Caroline 15.6 H (11.5-14.5) % Plt Count 143 (130-400) K/uL MPV 12.0 (9.4-12.4) fL Immature Gran % (Auto) 0.4 % Neut % (Auto) 89.4 % Lymph % (Auto) 3.6 % Yell % (Auto) 6.5 % Eos % (Auto) 0.0 % Baso % (Auto) 0.1 % Neut # (Auto) 13.68 H (1.40-6.50) K/uL Lymph # (Auto) 0.55 L (1.20-3.40) K/uL Yell # (Auto) 0.99 H (0.11-0.59) K/uL Eos # (Auto) 0.00 (0.00-0.50) K/uL Baso # (Auto) 0.02 (0.00-0.20) K/uL Immature Gran # (Auto) 0.06 (0.01-0.20) K/uL RBC Morphology Unremarkable PT 9.9 (9.0-12.0) Seconds INR 0.9 (0.9-1.1) APTT 33 H (21-31) Seconds PTT Ratio 1.2 Cord ABG pH 7.23 (7.1-7.38) Cord ABG pCO2 54 (39.1-73.5) mmHg Cord ABG pO2 < 20 (4.1-31.7) mmHg Cord ABG HCO3 23 (19.7-28.5) mmol/L Cord ABG Base Excess -5.5 (-9-1.8) mEq/L Cord ABG O2 Sat < 60.0 (<60) % Cord VBG pH 7.24 (7.20-7.44) Cord VBG pCO2 57 (30.4-57.2) mmHg Cord VBG pO2 < 20 (14.1-43.3) mmHg Cord VBG HCO3 24 (18.4-26.8) mmol/L Cord VBG Base Excess -3.8 (-7.7-1.9) mEq/L Cord VBG O2 Sat < 60.0 (<68) % Blood Gas Comments BERNABE BERNABE Sodium 134 L (136-145) mmol/L Potassium 4.2 (3.5-5.1) mmol/L Chloride 103 (98-107) mmol/L Carbon Dioxide 21 (21-32) mmol/L Anion Gap 10 (3-11) BUN 10 (6-23) mg/dl Creatinine 0.95 (0.6-1.2) mg/dl Est Cr Clr Drug Dosing 82.9 ml/min Est GFR ( Amer) 88.7 ml/min Est GFR (Non-Af Amer) 76.5 ml/min BUN/Creatinine Ratio 10.5 (10-20) Glucose 108 H (70-99(Fasting)) mg/dl Lactate 1.7 (0.4-2.0) mmol/L Calcium 8.6 (8.6-10.3) mg/dl Total Bilirubin 0.4 (0.2-1.0) mg/dl AST 40 H (13-39) U/L ALT 29 (7-52) U/L Alkaline Phosphatase 105 H (34-104) U/L Total Protein 5.8 L (6.0-8.3) gm/dl Albumin 3.0 L (3.4-5.0) gm/dl Globulin 2.8 (2.5-4.0) gm/dl Albumin/Globulin Ratio 1.1 (0.9-2) Ur Random Creatinine mg/dl U Random Total Protein (0-11.9) mg/dl Protein/Creatinin Ratio (0-0.2) Blood Type Antibody Screen 10/06/23 10/07/23 Range/Units 05:53 05:42 WBC 18.13 H (4.8-10.8) K/ul RBC 3.80 L (4.20-5.40) M/uL Hgb 9.7 L 7.8 L (12.0-16.0) g/dl Hct 29.9 L 23.2 L (37.0-47.0) % MCV 78.7 L (80.0-100.0) fL MCH 25.5 (25.0-34.0) pg MCHC 32.4 (32.0-36.0) g/dL RDW Std Deviation 44.1 (36.4-46.3) fL RDW Coeff of Caroline 15.4 H (11.5-14.5) % Plt Count 148 (130-400) K/uL MPV 12.7 H (9.4-12.4) fL Immature Gran % (Auto) 0.5 % Neut % (Auto) 88.2 % Lymph % (Auto) 3.9 % Yell % (Auto) 7.0 % Eos % (Auto) 0.0 % Baso % (Auto) 0.4 % Neut # (Auto) 15.99 H (1.40-6.50) K/uL Lymph # (Auto) 0.71 L (1.20-3.40) K/uL Yell # (Auto) 1.27 H (0.11-0.59) K/uL Eos # (Auto) 0.00 (0.00-0.50) K/uL Baso # (Auto) 0.07 (0.00-0.20) K/uL Immature Gran # (Auto) 0.09 (0.01-0.20) K/uL RBC Morphology Unremarkable PT (9.0-12.0) Seconds INR (0.9-1.1) APTT (21-31) Seconds PTT Ratio Cord ABG pH (7.1-7.38) Cord ABG pCO2 (39.1-73.5) mmHg Cord ABG pO2 (4.1-31.7) mmHg Cord ABG HCO3 (19.7-28.5) mmol/L Cord ABG Base Excess (-9-1.8) mEq/L Cord ABG O2 Sat (<60) % Cord VBG pH (7.20-7.44) Cord VBG pCO2 (30.4-57.2) mmHg Cord VBG pO2 (14.1-43.3) mmHg Cord VBG HCO3 (18.4-26.8) mmol/L Cord VBG Base Excess (-7.7-1.9) mEq/L Cord VBG O2 Sat (<68) % Blood Gas Comments Sodium (136-145) mmol/L Potassium (3.5-5.1) mmol/L Chloride (98-107) mmol/L Carbon Dioxide (21-32) mmol/L Anion Gap (3-11) BUN (6-23) mg/dl Creatinine 0.89 (0.6-1.2) mg/dl Est Cr Clr Drug Dosing 88.5 ml/min Est GFR ( Amer) 96.0 ml/min Est GFR (Non-Af Amer) 82.8 ml/min BUN/Creatinine Ratio (10-20) Glucose (70-99(Fasting)) mg/dl Lactate (0.4-2.0) mmol/L Calcium (8.6-10.3) mg/dl Total Bilirubin (0.2-1.0) mg/dl AST (13-39) U/L ALT (7-52) U/L Alkaline Phosphatase (34-104) U/L Total Protein (6.0-8.3) gm/dl Albumin (3.4-5.0) gm/dl Globulin (2.5-4.0) gm/dl Albumin/Globulin Ratio (0.9-2) Ur Random Creatinine mg/dl U Random Total Protein (0-11.9) mg/dl Protein/Creatinin Ratio (0-0.2) Blood Type Antibody Screen PE: General: Alert, orientedx3, NAD CVS: S1S2 RRR Lungs; CTAB Abd: soft, NT, ND, BS+, fundus firm, below Umbilicus Incision: Clean, dry, intact Perineum intact, Lochia rubra minimal Ext; NT, no edema AP: 38 yo s/p C Section, pod# 2 VSS Afebrile doing well Anemic, will order IV iron, Elevated WBCC, on IV AB, repeat CBC this morning Continue routine postop care Encourage ambulation, PO intake All questions were answered D/C home tomorrow Results & Data Vital Signs (Past 12 Hours) Vital Signs Temp Pulse Resp BP Pulse Ox O2 Del Method 10/06/23 23:10 36.6 C 95 H 16 108/76 96 Room Air
[2023-10-07] MEDS: IRON SUCROSE 200 MG in 0.9 % SODIUM CHLORIDE 100 ML IV ONE (09:46)
[2023-10-07 09:57] LABS: Hematocrit (blood only) 24.7 % (37.0-47.0); Hemoglobin 8.1 g/dl (12.0-16.0); Mean Corpuscular Hgb Conc 32.8 g/dL (32.0-36.0); Mean Corpuscular Volume 79.2 fL (80.0-100.0); Mean Platelet Volume 12.1 fL (9.4-12.4); Platelet Count 141 K/uL (130-400); RDW Coefficient of Variation 15.7 % (11.5-14.5); RDW Standard Deviation 45.1 fL (36.4-46.3); Red Blood Count 3.12 M/uL (4.20-5.40)
[2023-10-07 10:15] LABS: Basophils # (auto) 0.02 K/uL (0.00-0.20); Basophils % (auto) 0.1 %; Eosinophils % (auto) 1.2 %; Immature Granulocytes # (auto) 0.21 K/uL (0.01-0.20); Immature Granulocytes % (auto) 1.3 %; Lymphocytes % (auto) 4.2 %; Monocytes # (auto) 1.18 K/uL (0.11-0.59); Monocytes % (auto) 7.1 %; Neutrophils # (auto) 14.29 K/uL (1.40-6.50); Neutrophils % (auto) 86.1 %
[2023-10-07] MEDS: SENNA 8.6 MG TAB PO PRN (17:50)
[2023-10-07] MEDS ORDERED: bisacodyL 10 MG SUPP PR PRN (19:19)
[2023-10-07] MEDS: AMOXICILLIN/CLAVULANATE 875 MG TAB PO SCH (22:42)
[2023-10-08 06:49] LABS: Basophils # (auto) 0.04 K/uL (0.00-0.20); Basophils % (auto) 0.2 %; Eosinophils # (auto) 0.26 K/uL (0.00-0.50); Eosinophils % (auto) 1.6 %; Hematocrit (blood only) 22.3 % (37.0-47.0); Hemoglobin 7.5 g/dl (12.0-16.0); Immature Granulocytes # (auto) 0.72 K/uL (0.01-0.20); Immature Granulocytes % (auto) 4.3 %; Lymphocytes # (auto) 0.88 K/uL (1.20-3.40); Lymphocytes % (auto) 5.3 %; Mean Corpuscular Hgb Conc 33.6 g/dL (32.0-36.0); Mean Corpuscular Volume 77.4 fL (80.0-100.0); Mean Platelet Volume 12.6 fL (9.4-12.4); Monocytes # (auto) 1.02 K/uL (0.11-0.59); Monocytes % (auto) 6.1 %; Neutrophils # (auto) 13.82 K/uL (1.40-6.50); Neutrophils % (auto) 82.5 %; Nucleated RBC # (auto) 0.05 K/uL (0.00-0.12); Nucleated RBC % (auto) 0.3 %; Platelet Count 185 K/uL (130-400); RDW Coefficient of Variation 15.8 % (11.5-14.5); RDW Standard Deviation 44.1 fL (36.4-46.3); Red Blood Count 2.88 M/uL (4.20-5.40); White Blood Count 16.74 K/ul (4.8-10.8)
[2023-10-08 07:11] LABS: Hypochromasia Present; Microcytosis Present; Polychromasia 1+
[2023-10-08] MEDS: MAGNESIUM HYDROXIDE SUSP 30 ML UDC PO PRN (09:02)
--- NOTE | 2023-10-08 11:45 | Obstetrical Progress Note ---
Date of Service October 08, 2023 Assessment & Plan Admission and Anticipated Discharge Date Admission Date: October 02, 2023 Subjective Patient is seen and examined. She feels well, no complaints. Wants to be discharged. Pain is under control with oral meds. Ambulating without dizziness Voiding without difficulty Tolerating regular diet with out N&V Flatus + BM + Bleeding is minimal No fever/ chills/ CP/ SOB/ N&V/ Leg pain Bottle feeding without problems Vital Signs Temp Pulse Resp BP Pulse Ox O2 Del Method 10/08/23 09:00 36.9 C 92 H 20 124/82 98 Room Air 10/07/23 23:45 36.8 C 89 16 114/75 94 Room Air 10/07/23 19:30 36.6 C 94 H 16 124/84 95 Room Air 10/07/23 17:15 36.6 C 96 H 20 114/80 10/07/23 13:00 36.7 C 94 H 20 113/78 Lab Results 10/02/23 10/02/23 10/05/23 Range/Units 20:00 20:15 18:10 WBC 7.19 14.99 H (4.8-10.8) K/ul RBC 4.45 4.53 (4.20-5.40) M/uL Hgb 11.4 L 11.6 L (12.0-16.0) g/dl Hct 35.3 L 35.5 L (37.0-47.0) % MCV 79.3 L 78.4 L (80.0-100.0) fL MCH 25.6 25.6 (25.0-34.0) pg MCHC 32.3 32.7 (32.0-36.0) g/dL RDW Std Deviation 45.3 44.4 (36.4-46.3) fL RDW Coeff of Caroline 15.9 H 15.8 H (11.5-14.5) % Plt Count 163 146 (130-400) K/uL MPV 12.6 H 11.9 (9.4-12.4) fL Immature Gran % (Auto) % Neut % (Auto) % Lymph % (Auto) % Sterling % (Auto) % Eos % (Auto) % Baso % (Auto) % Neut # (Auto) (1.40-6.50) K/uL Lymph # (Auto) (1.20-3.40) K/uL Sterling # (Auto) (0.11-0.59) K/uL Eos # (Auto) (0.00-0.50) K/uL Baso # (Auto) (0.00-0.20) K/uL Immature Gran # (Auto) (0.01-0.20) K/uL Absolute Nucleated RBC (0.00-0.12) K/uL Nucleated RBC % (auto) % RBC Morphology Polychromasia Hypochromasia Microcytosis PT (9.0-12.0) Seconds INR (0.9-1.1) APTT (21-31) Seconds PTT Ratio Cord ABG pH (7.1-7.38) Cord ABG pCO2 (39.1-73.5) mmHg Cord ABG pO2 (4.1-31.7) mmHg Cord ABG HCO3 (19.7-28.5) mmol/L Cord ABG Base Excess (-9-1.8) mEq/L Cord ABG O2 Sat (<60) % Cord VBG pH (7.20-7.44) Cord VBG pCO2 (30.4-57.2) mmHg Cord VBG pO2 (14.1-43.3) mmHg Cord VBG HCO3 (18.4-26.8) mmol/L Cord VBG Base Excess (-7.7-1.9) mEq/L Cord VBG O2 Sat (<68) % Blood Gas Comments Sodium 135 L (136-145) mmol/L Potassium 3.9 (3.5-5.1) mmol/L Chloride 105 (98-107) mmol/L Carbon Dioxide 22 (21-32) mmol/L Anion Gap 8 (3-11) BUN 9 (6-23) mg/dl Creatinine 0.69 (0.6-1.2) mg/dl Est Cr Clr Drug Dosing 114.1 ml/min Est GFR ( Amer) 128.9 ml/min Est GFR (Non-Af Amer) 111.2 ml/min BUN/Creatinine Ratio 13.0 (10-20) Glucose 92 (70-99(Fasting)) mg/dl Lactate (0.4-2.0) mmol/L Calcium 8.8 (8.6-10.3) mg/dl Total Bilirubin 0.2 (0.2-1.0) mg/dl AST 27 (13-39) U/L ALT 27 (7-52) U/L Alkaline Phosphatase 129 H (34-104) U/L Total Protein 6.7 (6.0-8.3) gm/dl Albumin 3.5 (3.4-5.0) gm/dl Globulin 3.2 (2.5-4.0) gm/dl Albumin/Globulin Ratio 1.1 (0.9-2) Ur Random Creatinine 62.3 mg/dl U Random Total Protein 37.5 H (0-11.9) mg/dl Protein/Creatinin Ratio 0.6 H (0-0.2) Blood Type B Positive Antibody Screen NEGATIVE 10/05/23 10/05/23 10/05/23 Range/Units 18:41 18:41 22:52 WBC 15.30 H (4.8-10.8) K/ul RBC 4.05 L (4.20-5.40) M/uL Hgb 10.5 L (12.0-16.0) g/dl Hct 31.3 L (37.0-47.0) % MCV 77.3 L (80.0-100.0) fL MCH 25.9 (25.0-34.0) pg MCHC 33.5 (32.0-36.0) g/dL RDW Std Deviation 43.5 (36.4-46.3) fL RDW Coeff of Caroline 15.6 H (11.5-14.5) % Plt Count 143 (130-400) K/uL MPV 12.0 (9.4-12.4) fL Immature Gran % (Auto) 0.4 % Neut % (Auto) 89.4 % Lymph % (Auto) 3.6 % Sterling % (Auto) 6.5 % Eos % (Auto) 0.0 % Baso % (Auto) 0.1 % Neut # (Auto) 13.68 H (1.40-6.50) K/uL Lymph # (Auto) 0.55 L (1.20-3.40) K/uL Sterling # (Auto) 0.99 H (0.11-0.59) K/uL Eos # (Auto) 0.00 (0.00-0.50) K/uL Baso # (Auto) 0.02 (0.00-0.20) K/uL Immature Gran # (Auto) 0.06 (0.01-0.20) K/uL Absolute Nucleated RBC (0.00-0.12) K/uL Nucleated RBC % (auto) % RBC Morphology Unremarkable Polychromasia Hypochromasia Microcytosis PT 9.9 (9.0-12.0) Seconds INR 0.9 (0.9-1.1) APTT 33 H (21-31) Seconds PTT Ratio 1.2 Cord ABG pH 7.23 (7.1-7.38) Cord ABG pCO2 54 (39.1-73.5) mmHg Cord ABG pO2 < 20 (4.1-31.7) mmHg Cord ABG HCO3 23 (19.7-28.5) mmol/L Cord ABG Base Excess -5.5 (-9-1.8) mEq/L Cord ABG O2 Sat < 60.0 (<60) % Cord VBG pH 7.24 (7.20-7.44) Cord VBG pCO2 57 (30.4-57.2) mmHg Cord VBG pO2 < 20 (14.1-43.3) mmHg Cord VBG HCO3 24 (18.4-26.8) mmol/L Cord VBG Base Excess -3.8 (-7.7-1.9) mEq/L Cord VBG O2 Sat < 60.0 (<68) % Blood Gas Comments BERNABE BERNABE Sodium 134 L (136-145) mmol/L Potassium 4.2 (3.5-5.1) mmol/L Chloride 103 (98-107) mmol/L Carbon Dioxide 21 (21-32) mmol/L Anion Gap 10 (3-11) BUN 10 (6-23) mg/dl Creatinine 0.95 (0.6-1.2) mg/dl Est Cr Clr Drug Dosing 82.9 ml/min Est GFR ( Amer) 88.7 ml/min Est GFR (Non-Af Amer) 76.5 ml/min BUN/Creatinine Ratio 10.5 (10-20) Glucose 108 H (70-99(Fasting)) mg/dl Lactate 1.7 (0.4-2.0) mmol/L Calcium 8.6 (8.6-10.3) mg/dl Total Bilirubin 0.4 (0.2-1.0) mg/dl AST 40 H (13-39) U/L ALT 29 (7-52) U/L Alkaline Phosphatase 105 H (34-104) U/L Total Protein 5.8 L (6.0-8.3) gm/dl Albumin 3.0 L (3.4-5.0) gm/dl Globulin 2.8 (2.5-4.0) gm/dl Albumin/Globulin Ratio 1.1 (0.9-2) Ur Random Creatinine mg/dl U Random Total Protein (0-11.9) mg/dl Protein/Creatinin Ratio (0-0.2) Blood Type Antibody Screen 10/06/23 10/07/23 10/07/23 Range/Units 05:53 05:42 09:21 WBC 18.13 H 16.60 H (4.8-10.8) K/ul RBC 3.80 L 3.12 L (4.20-5.40) M/uL Hgb 9.7 L 7.8 L 8.1 L (12.0-16.0) g/dl Hct 29.9 L 23.2 L 24.7 L (37.0-47.0) % MCV 78.7 L 79.2 L (80.0-100.0) fL MCH 25.5 26.0 (25.0-34.0) pg MCHC 32.4 32.8 (32.0-36.0) g/dL RDW Std Deviation 44.1 45.1 (36.4-46.3) fL RDW Coeff of Caroline 15.4 H 15.7 H (11.5-14.5) % Plt Count 148 141 (130-400) K/uL MPV 12.7 H 12.1 (9.4-12.4) fL Immature Gran % (Auto) 0.5 1.3 % Neut % (Auto) 88.2 86.1 % Lymph % (Auto) 3.9 4.2 % Sterling % (Auto) 7.0 7.1 % Eos % (Auto) 0.0 1.2 % Baso % (Auto) 0.4 0.1 % Neut # (Auto) 15.99 H 14.29 H (1.40-6.50) K/uL Lymph # (Auto) 0.71 L 0.70 L (1.20-3.40) K/uL Sterling # (Auto) 1.27 H 1.18 H (0.11-0.59) K/uL Eos # (Auto) 0.00 0.20 (0.00-0.50) K/uL Baso # (Auto) 0.07 0.02 (0.00-0.20) K/uL Immature Gran # (Auto) 0.09 0.21 H (0.01-0.20) K/uL Absolute Nucleated RBC (0.00-0.12) K/uL Nucleated RBC % (auto) % RBC Morphology Unremarkable Polychromasia Hypochromasia Microcytosis PT (9.0-12.0) Seconds INR (0.9-1.1) APTT (21-31) Seconds PTT Ratio Cord ABG pH (7.1-7.38) Cord ABG pCO2 (39.1-73.5) mmHg Cord ABG pO2 (4.1-31.7) mmHg Cord ABG HCO3 (19.7-28.5) mmol/L Cord ABG Base Excess (-9-1.8) mEq/L Cord ABG O2 Sat (<60) % Cord VBG pH (7.20-7.44) Cord VBG pCO2 (30.4-57.2) mmHg Cord VBG pO2 (14.1-43.3) mmHg Cord VBG HCO3 (18.4-26.8) mmol/L Cord VBG Base Excess (-7.7-1.9) mEq/L Cord VBG O2 Sat (<68) % Blood Gas Comments Sodium (136-145) mmol/L Potassium (3.5-5.1) mmol/L Chloride (98-107) mmol/L Carbon Dioxide (21-32) mmol/L Anion Gap (3-11) BUN (6-23) mg/dl Creatinine 0.89 (0.6-1.2) mg/dl Est Cr Clr Drug Dosing 88.5 ml/min Est GFR ( Amer) 96.0 ml/min Est GFR (Non-Af Amer) 82.8 ml/min BUN/Creatinine Ratio (10-20) Glucose (70-99(Fasting)) mg/dl Lactate (0.4-2.0) mmol/L Calcium (8.6-10.3) mg/dl Total Bilirubin (0.2-1.0) mg/dl AST (13-39) U/L ALT (7-52) U/L Alkaline Phosphatase (34-104) U/L Total Protein (6.0-8.3) gm/dl Albumin (3.4-5.0) gm/dl Globulin (2.5-4.0) gm/dl Albumin/Globulin Ratio (0.9-2) Ur Random Creatinine mg/dl U Random Total Protein (0-11.9) mg/dl Protein/Creatinin Ratio (0-0.2) Blood Type Antibody Screen 10/08/23 Range/Units 06:12 WBC 16.74 H (4.8-10.8) K/ul RBC 2.88 L (4.20-5.40) M/uL Hgb 7.5 L (12.0-16.0) g/dl Hct 22.3 L (37.0-47.0) % MCV 77.4 L (80.0-100.0) fL MCH 26.0 (25.0-34.0) pg MCHC 33.6 (32.0-36.0) g/dL RDW Std Deviation 44.1 (36.4-46.3) fL RDW Coeff of Caroline 15.8 H (11.5-14.5) % Plt Count 185 (130-400) K/uL MPV 12.6 H (9.4-12.4) fL Immature Gran % (Auto) 4.3 % Neut % (Auto) 82.5 % Lymph % (Auto) 5.3 % Sterling % (Auto) 6.1 % Eos % (Auto) 1.6 % Baso % (Auto) 0.2 % Neut # (Auto) 13.82 H (1.40-6.50) K/uL Lymph # (Auto) 0.88 L (1.20-3.40) K/uL Sterling # (Auto) 1.02 H (0.11-0.59) K/uL Eos # (Auto) 0.26 (0.00-0.50) K/uL Baso # (Auto) 0.04 (0.00-0.20) K/uL Immature Gran # (Auto) 0.72 H (0.01-0.20) K/uL Absolute Nucleated RBC 0.05 (0.00-0.12) K/uL Nucleated RBC % (auto) 0.3 % RBC Morphology Polychromasia 1+ Hypochromasia Present Microcytosis Present PT (9.0-12.0) Seconds INR (0.9-1.1) APTT (21-31) Seconds PTT Ratio Cord ABG pH (7.1-7.38) Cord ABG pCO2 (39.1-73.5) mmHg Cord ABG pO2 (4.1-31.7) mmHg Cord ABG HCO3 (19.7-28.5) mmol/L Cord ABG Base Excess (-9-1.8) mEq/L Cord ABG O2 Sat (<60) % Cord VBG pH (7.20-7.44) Cord VBG pCO2 (30.4-57.2) mmHg Cord VBG pO2 (14.1-43.3) mmHg Cord VBG HCO3 (18.4-26.8) mmol/L Cord VBG Base Excess (-7.7-1.9) mEq/L Cord VBG O2 Sat (<68) % Blood Gas Comments Sodium (136-145) mmol/L Potassium (3.5-5.1) mmol/L Chloride (98-107) mmol/L Carbon Dioxide (21-32) mmol/L Anion Gap (3-11) BUN (6-23) mg/dl Creatinine (0.6-1.2) mg/dl Est Cr Clr Drug Dosing ml/min Est GFR ( Amer) ml/min Est GFR (Non-Af Amer) ml/min BUN/Creatinine Ratio (10-20) Glucose (70-99(Fasting)) mg/dl Lactate (0.4-2.0) mmol/L Calcium (8.6-10.3) mg/dl Total Bilirubin (0.2-1.0) mg/dl AST (13-39) U/L ALT (7-52) U/L Alkaline Phosphatase (34-104) U/L Total Protein (6.0-8.3) gm/dl Albumin (3.4-5.0) gm/dl Globulin (2.5-4.0) gm/dl Albumin/Globulin Ratio (0.9-2) Ur Random Creatinine mg/dl U Random Total Protein (0-11.9) mg/dl Protein/Creatinin Ratio (0-0.2) Blood Type Antibody Screen PE: General: Alert, orientedx3, NAD CVS: S1S2 RRR Lungs; CTAB Abd: soft, NT, ND, BS+, fundus firm, below Umbilicus Incision: Clean, dry, intact Perineum intact, Lochia rubra minimal Ext; NT, no edema AP: 38 yo s/p C Section, pod# 3 VSS Afebrile doing well Anemic asymptomatic, s/p IV iron yesterday, Continue routine postop care Encourage ambulation, PO intake All questions were answered Discussed when to call D/C home , f/u in office Results & Data Vital Signs (Past 12 Hours) Vital Signs Temp Pulse Resp BP Pulse Ox O2 Del Method 10/08/23 09:00 36.9 C 92 H 20 124/82 98 Room Air 10/07/23 23:45 36.8 C 89 16 114/75 94 Room Air
[2023-10-08] MEDS ORDERED: FERROUS SULFATE 325 MG TAB PO SCH (21:00)
--- NOTE | 2023-10-12 00:32 | Discharge Summary ---
Date of Service October 12, 2023 Admission HPI Per Admitting Provider Patient is a 38-year-old G1, P0 at 41 weeks of gestation who is presenting today for scheduled induction of labor for postdates. She has no complaints. She denies contractions, leakage of fluid, vaginal bleeding. She reports good movements. Her has been complicated by, 1. Late care at 20 weeks, 2. Advanced maternal age, no testing was done. 3. Anemia GBS is negative Discharge Data Procedures Performed Operation Date: 10/05/23 17:50 Actual Procedures p Section in LD, delivery of live female child at 1840 - Kenneth Ceja MD Hospital Course (1) Delivery by section: Patient is a 38-year-old G1, P0 at 41 weeks of gestation show who was admitted on October 01 for induction of labor for postdates. She has received Cervidil and Cytotec for cervical ripening and then [place] balloon insertion with Pitocin. On October 04 morning her cervix was 8 cm dilated and head was at 0 station. heart rate was reassuring. Patient reached to 10 cm dilatation and pushed about 2 hours and exhausted u nable to continue pushing. heart rate became tachycardic and mother started to have fevers suggesting intraamniotic infection. IV antibiotics were started and delivery was recommended. Patient was unable to push any more and decision was made made to proceed with primary . She was taken to the OR after preparation and delivered a viable female without complications. See dictated op note for details. IV antibiotics were to be continued for 48 hours. On postop day #1 patient was doing well but moving slowly. Vital signs stable afebrile and H&H was stable. Postop day #2 patient was feeling better, she started to move more and eat more, started passing gas and pain was under control with pain medications. Her H&H was stable but she was anemic. She has no symptoms of anemia with normal pulse. She was giving IV iron for anemia. Operative #3 patient was doing well, vital signs stable afebrile. Pain was under control with oral medications. Patient desired to go home. She was sent home with p.o. iron, pain medications, p.o. antibiotics. All questions were answered. (2) Proteinuria affecting in third trimester: (3) Anemia affecting : (4) Advanced maternal age, primigravida in third trimester, antepartum: (5) Post-term , 40-42 weeks of gestation:
== END 2023-10-08 16:45 | disposition home or self-care (01) | DRG 788 ==
LOC: 4S1 19:08 → 4E2 10-05 22:24